=== PATIENT | male | born 1985 | race Caucasian/White ===

== ENCOUNTER 2020-08-13 08:30 | Outpatient (CLI) | payer BC, SELFPAY ==
[2020-08-13 09:07] LABS: Alanine Aminotransferase 35 U/L (4-50); Albumin Level 4.5 g/dL (3.5-5.1); Alkaline Phosphatase 73 U/L (38-126); Anion Gap 5 mmol/L (8-16); Aspartate Amino Transferase 30 U/L (17-59); Bilirubin,Total 0.3 mg/dL (0.2-1.3); Blood Urea Nitrogen 20 mg/dL (9-20); Calcium 9.5 mg/dL (8.4-10.2); Carbon Dioxide 26 mmol/L (22-30); Chloride 107 mmol/L (98-107); Cholesterol 168 mg/dL (0-200); Estimated Glomerular Filt Rate > 60; Glucose 126 mg/dL (75-110); HDL Direct 48 mg/dL; Potassium 4.9 mmol/L (3.4-5.0); Sodium 138 mmol/L (137-145); Triglycerides 169 mg/dL (<150)
[2020-08-13 09:18] LABS: LDL Cholesterol Direct 99 mg/dL
[2020-08-13 09:20] LABS: Creatinine Urine 94.2 mg/dL
[2020-08-13 09:25] LABS: Microalbumin Urine Random < 6.0 mg/L (0-16.7)
[2020-08-13 09:26] LABS: MALB Creatinine Ratio < 6.4 mg/g (0-30)
[2020-08-13 10:00] LABS: Hemoglobin A1C 5.6 % (<5.7)
== END 2020-08-13 08:31 | disposition home or self-care (01) ==
PROVIDERS: PCP Emergency Medicine; Visit Provider Emergency Medicine
DX: E78.5 Hyperlipidemia, unspecified (principal); E11.9 Type 2 diabetes mellitus without complications
CPT/HCPCS: 36415; 80053; 80061; 82043; 83036

== ENCOUNTER 2021-08-20 10:59 | Outpatient (CLI) | payer BC, SELFPAY ==
[2021-08-20 12:00] LABS: Alanine Aminotransferase 40 U/L (4-50); Albumin Level 4.9 g/dL (3.5-5.1); Alkaline Phosphatase 85 U/L (38-126); Anion Gap 8 mmol/L (8-16); Aspartate Amino Transferase 31 U/L (17-59); Bilirubin,Total 0.8 mg/dL (0.2-1.3); Blood Urea Nitrogen 20 mg/dL (9-20); Calcium 9.7 mg/dL (8.4-10.2); Carbon Dioxide 25 mmol/L (22-30); Chloride 107 mmol/L (98-107); Cholesterol 190 mg/dL (0-200); Estimated Glomerular Filt Rate > 60; Glucose 104 mg/dL (65-110); HDL Direct 47 mg/dL; Potassium 4.7 mmol/L (3.4-5.0); Sodium 140 mmol/L (137-145); Triglycerides 107 mg/dL (<150)
[2021-08-20 12:01] LABS: Creatinine Urine 173.5 mg/dL; Hemoglobin A1C 6.8 % (<5.7)
[2021-08-20 12:11] LABS: LDL Cholesterol Direct 103 mg/dL
[2021-08-20 12:21] LABS: MALB Creatinine Ratio < 3.5 mg/g (0-30); Microalbumin Urine Random < 6.0 mg/L (0-16.7)
== END 2021-08-20 11:00 | disposition home or self-care (01) ==
PROVIDERS: PCP Emergency Medicine; Visit Provider Emergency Medicine
DX: I10 Essential (primary) hypertension (principal); E11.9 Type 2 diabetes mellitus without complications; E78.5 Hyperlipidemia, unspecified
CPT/HCPCS: 36415; 80053; 80061; 82043; 83036

== ENCOUNTER 2021-11-19 09:59 | Outpatient (CLI) | payer BC, SELFPAY ==
[2021-11-19 10:30] LABS: Alanine Aminotransferase 35 U/L (4-50); Albumin Level 4.3 g/dL (3.5-5.1); Alkaline Phosphatase 96 U/L (38-126); Anion Gap 7 mmol/L (8-16); Aspartate Amino Transferase 33 U/L (17-59); Bilirubin,Total 0.7 mg/dL (0.2-1.3); Blood Urea Nitrogen 15 mg/dL (9-20); Calcium 9.6 mg/dL (8.4-10.2); Carbon Dioxide 26 mmol/L (22-30); Chloride 105 mmol/L (98-107); Estimated Glomerular Filt Rate > 60; Glucose 126 mg/dL (65-110); Potassium 5.1 mmol/L (3.4-5.0); Sodium 138 mmol/L (137-145)
[2021-11-19 11:12] LABS: Hemoglobin A1C 6.6 % (<5.7)
[2021-11-19 11:29] LABS: Creatinine Urine 170.3 mg/dL
[2021-11-19 11:55] LABS: MALB Creatinine Ratio < 3.5 mg/g (0-30); Microalbumin Urine Random < 6.0 mg/L (0-16.7)
== END 2021-11-19 10:00 | disposition home or self-care (01) ==
PROVIDERS: PCP Emergency Medicine; Visit Provider Emergency Medicine
DX: E78.5 Hyperlipidemia, unspecified (principal); I10 Essential (primary) hypertension; E11.9 Type 2 diabetes mellitus without complications
CPT/HCPCS: 36415; 80053; 82043; 83036

== ENCOUNTER 2022-02-18 07:48 | Outpatient (CLI) | payer BC, SELFPAY ==
[2022-02-18 08:47] LABS: Alanine Aminotransferase 41 U/L (4-50); Albumin Level 4.6 g/dL (3.5-5.1); Alkaline Phosphatase 81 U/L (38-126); Anion Gap 6 mmol/L (8-16); Aspartate Amino Transferase 31 U/L (17-59); Bilirubin,Total 0.5 mg/dL (0.2-1.3); Blood Urea Nitrogen 18 mg/dL (9-20); Calcium 9.3 mg/dL (8.4-10.2); Carbon Dioxide 27 mmol/L (22-30); Chloride 105 mmol/L (98-107); Cholesterol 175 mg/dL (0-200); Estimated Glomerular Filt Rate > 60; Glucose 135 mg/dL (65-110); HDL Direct 43 mg/dL; Potassium 4.7 mmol/L (3.4-5.0); Sodium 138 mmol/L (137-145); Triglycerides 74 mg/dL (<150)
[2022-02-18 08:58] LABS: LDL Cholesterol Direct 96 mg/dL
== END 2022-02-18 07:49 | disposition home or self-care (01) ==
PROVIDERS: PCP Emergency Medicine; Visit Provider Emergency Medicine
DX: E11.9 Type 2 diabetes mellitus without complications (principal); I10 Essential (primary) hypertension; E78.5 Hyperlipidemia, unspecified
CPT/HCPCS: 36415; 80053; 80061; 83036

== ENCOUNTER 2022-07-15 08:37 | Outpatient (CLI) | payer BC, SELFPAY ==
[2022-07-15 09:08] LABS: Alanine Aminotransferase 42 U/L (6-50); Albumin Level 4.4 g/dL (3.5-5.1); Alkaline Phosphatase 82 U/L (38-126); Anion Gap 7 mmol/L (8-16); Aspartate Amino Transferase 29 U/L (17-59); Bilirubin,Total 0.5 mg/dL (0.2-1.3); Blood Urea Nitrogen 21 mg/dL (9-20); Calcium 9.4 mg/dL (8.4-10.2); Carbon Dioxide 25 mmol/L (22-30); Chloride 107 mmol/L (98-107); Cholesterol 148 mg/dL (0-200); Estimated Glomerular Filt Rate > 60; Glucose 152 mg/dL (65-110); HDL Direct 37 mg/dL; Potassium 4.9 mmol/L (3.4-5.0); Sodium 139 mmol/L (137-145); Triglycerides 79 mg/dL (<150)
[2022-07-15 09:12] LABS: Hemoglobin A1C 6.2 % (<5.7)
[2022-07-15 09:18] LABS: LDL Cholesterol Direct 87 mg/dL
== END 2022-07-15 08:38 | disposition home or self-care (01) ==
LOC: ANHLAB 08:39
PROVIDERS: PCP Emergency Medicine; Visit Provider Emergency Medicine
DX: E78.5 Hyperlipidemia, unspecified (principal); E11.9 Type 2 diabetes mellitus without complications; I10 Essential (primary) hypertension
CPT/HCPCS: 36415; 80053; 80061; 83036

== ENCOUNTER 2022-10-13 09:21 | Outpatient (CLI) | payer BC, SELFPAY ==
[2022-10-13 10:04] LABS: Alanine Aminotransferase 47 U/L (6-50); Albumin Level 4.6 g/dL (3.5-5.1); Alkaline Phosphatase 76 U/L (38-126); Anion Gap 6 mmol/L (8-16); Aspartate Amino Transferase 31 U/L (17-59); Bilirubin,Total 0.7 mg/dL (0.2-1.3); Blood Urea Nitrogen 17 mg/dL (9-20); Calcium 9.1 mg/dL (8.4-10.2); Carbon Dioxide 25 mmol/L (22-30); Chloride 105 mmol/L (98-107); Cholesterol 188 mg/dL (0-200); Estimated Glomerular Filt Rate > 60; Glucose 135 mg/dL (65-110); HDL Direct 46 mg/dL; Potassium 4.8 mmol/L (3.4-5.0); Sodium 136 mmol/L (137-145); Triglycerides 80 mg/dL (<150)
[2022-10-13 10:15] LABS: LDL Cholesterol Direct 103 mg/dL
[2022-10-13 10:16] LABS: Hemoglobin A1C 5.9 % (<5.7)
[2022-10-13 10:35] LABS: Microalbumin Urine Random 6.6 mg/L (0-16.7)
[2022-10-13 10:36] LABS: MALB Creatinine Ratio 4.5 mg/g (0-30)
== END 2022-10-13 09:22 | disposition home or self-care (01) ==
LOC: ANHLAB 09:22
PROVIDERS: PCP Emergency Medicine; Visit Provider Emergency Medicine
DX: E11.9 Type 2 diabetes mellitus without complications (principal)
CPT/HCPCS: 36415; 80053; 80061; 82043; 83036

== ENCOUNTER 2023-01-13 09:12 | Outpatient (CLI) | payer BC, SELFPAY ==
[2023-01-13 09:53] LABS: Alanine Aminotransferase 44 U/L (6-50); Albumin Level 4.7 g/dL (3.5-5.1); Alkaline Phosphatase 85 U/L (38-126); Anion Gap 6 mmol/L (8-16); Aspartate Amino Transferase 32 U/L (17-59); Bilirubin,Total 0.7 mg/dL (0.2-1.3); Blood Urea Nitrogen 14 mg/dL (9-20); Calcium 9.3 mg/dL (8.4-10.2); Carbon Dioxide 25 mmol/L (22-30); Chloride 106 mmol/L (98-107); Cholesterol 156 mg/dL (0-200); Estimated Glomerular Filt Rate > 60; Glucose 121 mg/dL (65-110); HDL Direct 54 mg/dL; Potassium 5.1 mmol/L (3.4-5.0); Sodium 137 mmol/L (137-145); Triglycerides 124 mg/dL (<150)
[2023-01-13 10:04] LABS: LDL Cholesterol Direct 73 mg/dL
[2023-01-13 10:18] LABS: Creatinine Urine 113.7 mg/dL
[2023-01-13 10:20] LABS: MALB Creatinine Ratio 11.1 mg/g (0-30); Microalbumin Urine Random 12.6 mg/L (0-16.7)
[2023-01-13 11:17] LABS: Hemoglobin A1C 5.7 % (<5.7)
== END 2023-01-13 09:13 | disposition home or self-care (01) ==
LOC: ANHLAB 09:13
PROVIDERS: PCP Emergency Medicine; Visit Provider Emergency Medicine
DX: E11.9 Type 2 diabetes mellitus without complications (principal)
CPT/HCPCS: 36415; 80053; 80061; 82043; 83036

== ENCOUNTER 2023-04-20 07:28 | Outpatient (CLI) | payer BC, SELFPAY ==
[2023-04-20 08:28] LABS: Alanine Aminotransferase 49 U/L (6-50); Albumin Level 4.5 g/dL (3.5-5.1); Alkaline Phosphatase 70 U/L (38-126); Anion Gap 4 mmol/L (8-16); Aspartate Amino Transferase 35 U/L (17-59); Bilirubin,Total 0.5 mg/dL (0.2-1.3); Blood Urea Nitrogen 18 mg/dL (9-20); Calcium 8.9 mg/dL (8.4-10.2); Carbon Dioxide 29 mmol/L (22-30); Chloride 108 mmol/L (98-107); Cholesterol 170 mg/dL (0-200); Estimated Glomerular Filt Rate > 60; Glucose 101 mg/dL (65-110); HDL Direct 41 mg/dL; Potassium 4.5 mmol/L (3.4-5.0); Sodium 141 mmol/L (137-145); Triglycerides 107 mg/dL (<150)
[2023-04-20 08:39] LABS: LDL Cholesterol Direct 107 mg/dL
[2023-04-20 09:06] LABS: Hemoglobin A1C 6.1 % (<5.7)
[2023-04-20 11:31] LABS: Creatinine Urine 129.1 mg/dL
[2023-04-20 12:17] LABS: Microalbumin Urine Random < 6.0 mg/L (0-16.7)
[2023-04-20 12:18] LABS: MALB Creatinine Ratio < 4.6 mg/g (0-30)
== END 2023-04-20 07:29 | disposition home or self-care (01) ==
LOC: ANHLAB 07:30
PROVIDERS: PCP Emergency Medicine; Visit Provider Emergency Medicine
DX: E78.5 Hyperlipidemia, unspecified (principal); E11.9 Type 2 diabetes mellitus without complications
CPT/HCPCS: 36415; 80053; 80061; 82043; 83036

== ENCOUNTER 2023-08-11 08:29 | Outpatient (CLI) | payer BC, SELFPAY ==
[2023-08-11 08:54] LABS: Alanine Aminotransferase 42 U/L (6-50); Albumin Level 4.5 g/dL (3.5-5.1); Alkaline Phosphatase 78 U/L (38-126); Anion Gap 7 mmol/L (8-16); Aspartate Amino Transferase 30 U/L (17-59); Bilirubin,Total 0.5 mg/dL (0.2-1.3); Blood Urea Nitrogen 21 mg/dL (9-20); Carbon Dioxide 22 mmol/L (22-30); Chloride 110 mmol/L (98-107); Cholesterol 164 mg/dL (0-200); Estimated Glomerular Filt Rate > 60; Glucose 110 mg/dL (65-110); HDL Direct 49 mg/dL; Potassium 4.6 mmol/L (3.4-5.0); Sodium 139 mmol/L (137-145); Triglycerides 82 mg/dL (<150)
[2023-08-11 09:01] LABS: Hemoglobin A1C 6.1 % (<5.7)
[2023-08-11 09:06] LABS: LDL Cholesterol Direct 90 mg/dL
[2023-08-11 09:14] LABS: Creatinine Urine 117.4 mg/dL
[2023-08-11 09:28] LABS: MALB Creatinine Ratio < 5.1 mg/g (0-30); Microalbumin Urine Random < 6.0 mg/L (0-16.7)
[2023-08-15 15:46] LABS: Vitamin D 1,25 (OH)2 Total 44 pg/mL (18-72); Vitamin D2 1,25 (OH)2 <8 pg/mL; Vitamin D3 1,25 (OH)2 44 pg/mL
== END 2023-08-11 08:30 | disposition home or self-care (01) ==
LOC: ANHLAB 08:30
PROVIDERS: PCP Emergency Medicine; Visit Provider Emergency Medicine
DX: E11.9 Type 2 diabetes mellitus without complications (principal); E78.5 Hyperlipidemia, unspecified; E55.9 Vitamin D deficiency, unspecified
CPT/HCPCS: 36415; 80053; 80061; 82043; 82652; 83036

== ENCOUNTER 2023-11-16 07:35 | Outpatient (CLI) | payer BC, SELFPAY ==
[2023-11-16 08:11] LABS: Alanine Aminotransferase 60 U/L (6-50); Albumin Level 4.6 g/dL (3.5-5.1); Alkaline Phosphatase 94 U/L (38-126); Anion Gap 9 mmol/L (8-16); Aspartate Amino Transferase 35 U/L (17-59); Bilirubin,Total 0.8 mg/dL (0.2-1.3); Blood Urea Nitrogen 17 mg/dL (9-20); Calcium 9.5 mg/dL (8.4-10.2); Carbon Dioxide 26 mmol/L (22-30); Chloride 104 mmol/L (98-107); Cholesterol 184 mg/dL (0-200); Estimated Glomerular Filt Rate > 60; Glucose 135 mg/dL (65-110); HDL Direct 51 mg/dL; Potassium 4.7 mmol/L (3.4-5.0); Sodium 139 mmol/L (137-145); Triglycerides 95 mg/dL (<150)
[2023-11-16 08:18] LABS: LDL Cholesterol Direct 107 mg/dL
== END 2023-11-16 07:36 | disposition home or self-care (01) ==
LOC: ANHLAB 07:37
PROVIDERS: PCP Emergency Medicine; Visit Provider Emergency Medicine
DX: E55.9 Vitamin D deficiency, unspecified (principal); E78.5 Hyperlipidemia, unspecified; I10 Essential (primary) hypertension
CPT/HCPCS: 36415; 80053; 80061; 82306; 83036

== ENCOUNTER 2024-02-15 08:24 | Outpatient (CLI) | payer BC, SELFPAY ==
[2024-02-15 09:05] LABS: Alanine Aminotransferase 44 U/L (6-50); Albumin Level 4.4 g/dL (3.5-5.1); Alkaline Phosphatase 81 U/L (38-126); Anion Gap 5 mmol/L (4-12); Aspartate Amino Transferase 32 U/L (17-59); Bilirubin,Total 0.5 mg/dL (0.2-1.3); Blood Urea Nitrogen 19 mg/dL (9-20); Calcium 9.4 mg/dL (8.4-10.2); Carbon Dioxide 26 mmol/L (22-30); Chloride 105 mmol/L (98-107); Cholesterol 153 mg/dL (0-200); Estimated Glomerular Filt Rate > 60; Glucose 151 mg/dL (65-110); HDL Direct 46 mg/dL; Potassium 4.5 mmol/L (3.4-5.0); Sodium 136 mmol/L (137-145); Triglycerides 104 mg/dL (<150)
[2024-02-15 09:16] LABS: LDL Cholesterol Direct 96 mg/dL
[2024-02-15 09:48] LABS: Vitamin D 25 Hydroxy 31.9 ng/mL
[2024-02-15 10:47] LABS: MALB Creatinine Ratio < 12.5 mg/g (0-30); Microalbumin Urine Random < 6.0 mg/L (0-16.7)
[2024-02-15 13:07] LABS: Hemoglobin A1C 6.6 % (<5.7)
== END 2024-02-15 08:25 | disposition home or self-care (01) ==
LOC: ANHLAB 08:25
PROVIDERS: PCP Emergency Medicine; Visit Provider Emergency Medicine
DX: E78.5 Hyperlipidemia, unspecified (principal); E11.9 Type 2 diabetes mellitus without complications; E55.9 Vitamin D deficiency, unspecified
CPT/HCPCS: 36415; 80053; 80061; 82043; 82306; 83036

== ENCOUNTER 2024-05-17 08:27 | Outpatient (CLI) | payer BC, SELFPAY ==
[2024-05-17 09:03] LABS: Alanine Aminotransferase 39 U/L (6-50); Albumin Level 4.4 g/dL (3.5-5.1); Alkaline Phosphatase 89 U/L (38-126); Anion Gap 8 mmol/L (4-12); Aspartate Amino Transferase 43 U/L (17-59); Bilirubin,Total 0.6 mg/dL (0.2-1.3); Blood Urea Nitrogen 26 mg/dL (9-20); Calcium 10.5 mg/dL (8.4-10.2); Carbon Dioxide 29 mmol/L (22-30); Chloride 100 mmol/L (98-107); Cholesterol 143 mg/dL (0-200); Estimated Glomerular Filt Rate > 60; Glucose 117 mg/dL (65-110); HDL Direct 42 mg/dL; Potassium 3.9 mmol/L (3.4-5.0); Sodium 137 mmol/L (137-145); Triglycerides 129 mg/dL (<150)
[2024-05-17 09:14] LABS: LDL Cholesterol Direct 82 mg/dL
[2024-05-17 09:42] LABS: Creatinine Urine 48.2 mg/dL
[2024-05-17 09:56] LABS: Microalbumin Urine Random < 6.0 mg/L (0-16.7)
[2024-05-17 09:57] LABS: MALB Creatinine Ratio < 12.4 mg/g (0-30)
[2024-05-17 10:05] LABS: Hemoglobin A1C 5.8 % (<5.7)
[2024-05-17 10:17] LABS: Vitamin D 25 Hydroxy 34.9 ng/mL
== END 2024-05-17 08:28 | disposition home or self-care (01) ==
PROVIDERS: PCP Emergency Medicine; Visit Provider Emergency Medicine
DX: E78.5 Hyperlipidemia, unspecified (principal); E55.9 Vitamin D deficiency, unspecified; E11.9 Type 2 diabetes mellitus without complications
CPT/HCPCS: 36415; 80053; 80061; 82043; 82306; 83036

== ENCOUNTER 2024-05-20 12:07 | Emergency (ER) | payer BC, SELFPAY ==
[2024-05-20] VITALS (8 sets, daily range): BP systolic 126–151; BP diastolic 70–96; PULSE 77–94; RESP 15–20; TEMP 36.7; O2SAT 93–97
--- NOTE | ~2024-05-20 | CT_ITS ---
CT diagnostic chest w con Ordering provider: Mao Anderson MD History: 38 years Male with . Large left chest wall abscess . Comparison: None. Technique: CT chest with IV contrast. Radiation reduction technique utilized. DLP is 835.9 mGy-cm. 75 mL of Omnipaque 350 was given IV. Findings: VISUALIZED THORACIC INLET: Normal. MEDIASTINUM: Aorta/coronary arteries: The thoracic aorta is normal. Heart/other: The heart is not enlarged. Lymph nodes: Bilateral hilar, subcarinal and paratracheal lymphadenopathy is seen. Lymph nodes are al so seen in the prevascular area.. The right hilar lymph nodes measure 3.3 x 1.4 cm. The subcarinal ly mphadenopathy measures 4.2 x 2.1 cm. The left hilar lymph node measures 2.8 x 2.1 cm. LUNGS: No pulmonary nodules or masses. No infiltrates or effusions. No pneumothorax. VISUALIZED UPPER ABDOMEN: the visualized upper abdomen is normal. MUSCULOSKELETAL: Soft tissues: A large left chest wall mass with multiloculated areas which may be a mass with necroti c areas but an inflammatory mass with abscess is is not excluded. The mass measures 12.5 x 11.7 x 1 2 .3 cm. Fat stranding also seen around the mass anteriorly inferiorly and posteriorly. Bones: Age appropriate degenerative changes of the spine. IMPRESSION: Mass in the left chest wall which may be inflammatory with multiple abscesses or a mass with necrotic tissues. Further evaluation and clinical correlation advised. Mediastinal and bilateral hilar lymphadenopathy. Reviewed, dictated and finalized at location A. IMPRESSION: Mass in the left chest wall which may be inflammatory with multiple abscesses o r a mass with necrotic tissues. Further evaluation and clinical correlation adv ised. Mediastinal and bilateral hilar lymphadenopathy.
--- NOTE | 2024-05-20 13:26 | PC.NURSE ---
Pt denies any pain or itching to area. States he first noticed the swelling and discoloration 3 months ago and PCP told him to keep an eye on it. Pt denies any antibiotic ointment or other tx. Reports a tingling sensation to L fingers.
[2024-05-20 13:56] LABS: Basophils Percent Auto 0.5 % (0.2-1.2); Eosinophils Absolute Auto 0.6 K/mm3 (0-0.3); Eosinophils Percent Auto 8.5 % (0-4.4); Hematocrit 39.7 % (42.0-52.0); Hemoglobin 13.5 g/dL (14.0-18.0); Immature Granulocyte Absolute 0.02 K/mm3 (0.00-0.031); Immature Granulocyte Percent A 0.3 % (0-0.5); Mean Corpuscular Hemoglobin 32.1 pg (26-34); Mean Corpuscular Volume 94.5 fl (80-100); Mean Platelet Volume 8.9 fl (7.4-10.4); Monocytes Absolute Auto 0.6 K/mm3 (0.1-0.6); Neutrophils Absolute Auto 5.6 K/mm3 (1.3-6.7); Neutrophils Percent Auto 74.7 % (45.5-73.1); Platelet Count Result 218 k/mm3 (150-375); Red Cell Distribution Width 13.2 % (11.5-14.5); White Blood Count 7.5 K/mm3 (4.5-10.0)
[2024-05-20 14:02] LABS: Estimated CRCL calculation 94 ml/min; Estimated Glomerular Filt Rate > 60
[2024-05-20 14:08] LABS: Lactic Acid Reflex 1.8 mmol/L (0.7-2.0)
[2024-05-20 14:09] LABS: Alanine Aminotransferase 35 U/L (6-50); Albumin Level 3.8 g/dL (3.5-5.1); Alkaline Phosphatase 72 U/L (38-126); Anion Gap 6 mmol/L (4-12); Aspartate Amino Transferase 37 U/L (17-59); Bilirubin,Total 0.3 mg/dL (0.2-1.3); Blood Urea Nitrogen 23 mg/dL (9-20); Calcium 10.4 mg/dL (8.4-10.2); Carbon Dioxide 28 mmol/L (22-30); Chloride 105 mmol/L (98-107); Estimated CRCL calculation 104 ml/min; Estimated Glomerular Filt Rate > 60; Glucose 204 mg/dL (65-110); Potassium 3.9 mmol/L (3.4-5.0); Sodium 139 mmol/L (137-145)
--- NOTE | 2024-05-20 14:15 | ED.GENADULT ---
HPI - General Adult General Chief complaint: Unspecified <Mao Anderson MD - Last Filed: 05/20/24 18:46> Stated complaint: swollen axilla <Mao Anderson MD - Last Filed: 05/20/24 18:46> Time Seen by Provider: 05/20/24 12:31 <Mao Anderson MD - Last Filed: 05/20/24 18:46> Source: patient <Mao Anderson MD - Last Filed: 05/20/24 18:46> Mode of arrival: ambulatory <Mao Anderson MD - Last Filed: 05/20/24 18:46> Limitations: no limitations <Mao Anderson MD - Last Filed: 05/20/24 18:46> History of Present Illness HPI narrative: This is a 38M with history of diabetes, who presents emergency department complaining of a rapidly growing mass on the left side of his chest. Patient states 3 months ago, he noticed a small mass in the same area that is increased size of the past week. This is associated with left arm swelling and redness of the skin. He denies significant pain, fevers or chills. He has no other complaints at this time. <Mao Anderson MD - Last Filed: 05/20/24 18:46> Related Data Allergies/adverse reactions: Allergies Allergy/AdvReac Type Severity Reaction Status Date / Time No Known Allergies Allergy Verified 05/20/24 12:08 <Mao Anderson MD - Last Filed: 05/20/24 18:46> Review of Systems Review of Systems: All systems reviewed & are unremarkable except as noted in HPI and below <Mao Anderson MD - Last Filed: 05/20/24 18:46> PMFSH Past Medical History Medical History: Medical History Abscess Acute diffuse otitis externa of right ear Cellulitis of left upper extremity Cellulitis of right lower extremity Cervical spine pain Diabetes mellitus Fatigue HLD (hyperlipidemia) HTN (hypertension) Hyperglycemia Moderate episode of recurrent major depressive disorder Tobacco use Type 2 diabetes mellitus Vitamin D deficiency <Mao Anderson MD - Last Filed: 05/20/24 18:46> Social History Social History: Social History Smoking status: Heavy tobacco smoker Second hand tobacco smoke exposure: Yes Alcohol intake: current Substance use: never Substance use type: does not use Current Housing: Decline to Answer Concerned About Future Housing: Decline to Answer Difficulty Paying Gas/Electric Bills: Decline to Answer Difficulty Paying for Meds: Decline to Answer Currently Unemployed: Decline to Answer Education: Decline to Answer Difficulty w/ Childcare or Family Care: Decline to Answer Gender identity (if verbalized by the patient): Male Spiritual care concerns: No Agree to blood products: Yes <Mao Anderson MD - Last Filed: 05/20/24 18:46> Exam Narrative: GENERAL: Well-developed, well-nourished, and in no acute distress. HEAD: Normocephalic, atraumatic. EYES: PERRLA and EOMI. NECK: Supple. No adenopathy or masses. No carotid bruits or JVD CHEST: Clear to auscultation. No respiratory distress. No wheezes rales or rhonchi. There is a large (approximately baseball sized) mass noted over the left chest wall at the lateral border of the pectoral muscle. The overlying skin is erythematous with a sharp demarcation. HEART: Regular rate and rhythm. No murmur heard. Normal peripheral pulses. ABDOMEN: Soft, nontender, nondistended, normal active bowel sounds. EXTREMITIES: The left arm appears swollen with trace edema. There is erythema noted at the proximal aspect with sharp demarcation. Normal range of motion. No noted edema in the other limbs. SKIN: Erythema as noted above. Skin otherwise warm, dry, no rash. NEURO: Alert and oriented x3. No focal deficit. Moving all 4 limbs spontaneously PSYCH: Normal mood and affect. <Mao Anderson MD - Last Filed: 05/20/24 18:46> Course Course Emergency Course: 15:05 -CBC demonstrates mild anemia hemog
[2024-05-20] MEDS: CEFEPIME 1 GM/NS 50 ML 1 GM/50 ML BAG IVPB (14:43)
[2024-05-20] MEDS: metroNIDAZOLE 500 MG/ISO 100ML 500 MG/100 ML BAG 100 MG IVPB (15:10)
[2024-05-20] MEDS: VANCOMYCIN 1,250 MG/NS 250 ML 1,250 MG/250 ML BAG 166.67 MG IVPB (16:17)
--- NOTE | 2024-05-20 17:23 | PC.NURSE ---
Edda with [facility] transfer center called for triage information. States he is accepted at [facility] and awaiting a bed, reports it will be approx 1 week.
[2024-05-20] MEDS: VANCOMYCIN 1,000 MG/NS 250 ML 1,000 MG/250 ML BAG 250 MG IVPB (18:33)
[2024-05-20] MEDS: NICOTINE (*PBKC) 21 MG PATCH 1 PATCH TRANSDERM (19:43)
--- NOTE | 2024-05-20 22:16 | PC.NURSE ---
Pt accepted at [facility], room 317. Report given to Mihir Chacon at [phone].
== END 2024-05-20 23:53 | disposition short-term general hospital (02) ==
PROVIDERS: Preventive Medicine Aerospace Medicine; Emergency Provider Emergency Medicine; PCP Emergency Medicine
DX: R22.2 Localized swelling, mass and lump, trunk (principal); L03.313 Cellulitis of chest wall; I10 Essential (primary) hypertension; E11.9 Type 2 diabetes mellitus without complications; E78.5 Hyperlipidemia, unspecified; E55.9 Vitamin D deficiency, unspecified; F17.200 Nicotine dependence, unspecified, uncomplicated; Z79.4 Long term (current) use of insulin
CPT/HCPCS: 36415; 71260; 80053; 83605; 85025; 87040; 96365; 96366; 96367; 99285; A9270; J0692; J1836; J3370; Q9967

== ENCOUNTER 2025-01-26 08:03 | Outpatient (CLI) | payer BC, SELFPAY ==
--- OUTSIDE RECORDS SUMMARY | 2025-01-26 08:16 | XMS_ITS ---
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 05/30/2024 Chest wall mass 05/20/2024 Allergic rhinitis 07/20/2006 Migraine headache 07/20/2006 Tobacco use disorder 07/20/2006 Current Treatment and Therapy Plans CCSCI: R CHOP (STD 21 DAY) - NON-HODGKIN LYMPHOMA* Plan Start Date:06/11/2024 Plan Provider:Marc Henley MD Linked Problems Diffuse large B-cell lymphom a of intrathoracic lymph nodes (HCC) Treatment Medications cyclophosphamide (CYTOXAN) c hemo infusionDOXOrubicin (ADRIAMYCIN)riTUXimab-ARRX (Riabni) infusionvinCRIStine (ONCOVIN) chemo infusion Past Treatment and Therapy Plans ONCOLOGY SUPPORTIVE CARE Plan Name Start Date Discontinue Date Treatment Medications Discontinue Reason Plan Provider Cycles SUPPORT - HYDRATION WITH ADDITIVES - CCSCI 4 01/22/2025 No medications scheduled. Automatically Discontinued - Inactive Plan Marc Henley MD 1 of 1 cycle started Lifetime Dose Tracking * Chemical Lifetime Dose Automatic Entry Manual Entr y Doxorubicin 357.633 mg/m2 (728 mg) 357.633 mg/m2 (728 mg) 0 mg/m2 (0 mg) Cyclophosphamide 4,596.028 mg/m2 (9,360 mg) 4,596.028 mg/m2 (9,360 mg) 0 mg/m2 (0 mg)
--- OUTSIDE RECORDS SUMMARY | 2025-01-26 08:16 | XMS_ITS | Encounter Summary ---
Author Organization [facility] Address [address] [place] [id number] Care Team Providers Care Purchasing Internship Name Role Phone Trevor Womack MD Primary Care Provider [phone] Encounter Details Date Type Department Care Team (Late st Contact Info) Description 12/05/2007 Orders Only [facility] Internal Medicine [address] [address] Trevor Womack MD [address] [place] [phone] Social History Tobacco Use Types Packs/Day Years Used Date Smoking Tobacco: Never Assessed Sex and Gender Information Value Date Recorded Sex Assigned at Not on file Legal 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 PROBLEMS: Body aches. Has been hot & cold. CONGESTION: Patient complains of sinus congestion. The symptoms began approximately 2 days ago. Therapies tried include cold medicine. Clear sinus congestion COUGH:Patient complains of cough. The symptoms began approximately 2 days ago. Makes him cough & he dry heaves. non-productive RUNNY NOSE: Patient complains of runny nose. The runny nose symptoms began approximately 2 days ago. SORE THROAT: Patient complains of sore throat. The sore throat began approximately 2 days ago. SECTION 1: REQUESTED ACTION jann 12/05/07 at 10:29 am: APPOINTMENT REQUEST: Patient wants an appointment today, you are booked, need OK to book with another provider. DOCTOR`S RESPONSE: calvinmindi 12/05/07 at 10:40 am see me at 11;45 FINAL ACTION: jann 12/05/07 at 10:43 am Spoke with patient 12/05/07 at 10:43 am. Booked appointment: 11:45 Electronically Signed by: Deborah Bellamy on November * Trevor Womack MD - 03/25/2008 8:10 PM CDT WEIGHT: 178lbs BLOOD PRESSURE: 122/86 Right Arm Sitting NURSE NAME: Markus Escalera N TOBACCO USE Patient is a current tobacco user. CHIEF COMPLAINT Patient complains of cough, post nasal drip.started 3 days ago, felt warm then chills, some dry heaves from coughing, cough is dry though HISTORY: HISTORY: 305.1-TOBACCO ABUSE The patient continues to smoke regularly despite the awareness that this is harmful. 466.0-BRONCHITIS ACUTE The acute bronchitis has worsened. The patient continues to smoke regularly. PHYSICAL EXAMINATION: CONSTITUTIONAL: GENERAL APPEARANCE: Healthy appearing patient in no distress. EARS, NOSE, MOUTH AND THROAT: ORAL: Inspection of gums, lips, palate, and teeth normal. No scars, lesions, or masses. Oral mucosaunremarkable with non-inflamed posterior pharynx. NECK/THYROID: Trachea midline. No thyroid enlargement, tenderness, or mass. No supraclavicular or cervical adenopathy. RESPIRATORY: Clear to auscultation and percussion. Normal respiratory effort. CARDIOVASCULAR: CARDIAC: Regular rhythm. No murmurs, rubs, or gallops. ARTERIAL: No aortic bruits. EDEMA/VARICOSITIES OF EXTREMITIES: No edema or varicosities. GASTROINTESTINAL: ABDOMEN: Soft, non-tender, without masses. Bowel sounds active. LIVER/SPLEEN/KIDNEY: No hepatosplenomegaly, tenderness or nodularity. Kidneys not palpable. ASSESSMENT/PLAN: 305.1-TOBACCO ABUSE ASSESSMENT: The patient continues to smoke and was strongly advised to discontinue tobacco productscompletely. 692.9-ECZEMA ASSESSMENT: The patient's dermatitis has improved. 466.0-BRONCHITIS ACUTE ASSESSMENT: The patient's acute bronchitis has worsened. MEDICATIONS: AUGMENTIN ORAL TABLET 875-125 MG, 1 Two Times A Day, 20 Dispensed, status: NEW PRESCRIPTION, 12/05/2007. GUAIFENESIN AC ORAL LIQUID 100-10 MG/5ML FLUIDOUNCES, 10 cc every three hours while awake, 4 Dispensed, status: NEW PRESCRIPTION, 12/05/2007. RETURN VISIT : Patient instructed to call in 5 days if not improving.rest incr fluids, tyelnol Electronically Signed by: Trevor Womack MD on November documented in this encounter Plan of Treatment Not on file documented as of this encounter Visit Diagnoses Not on filedocumented in this encounter Care Teams Purchasing Internship Relationship Specialty [place] [id number] [phone] PCP - General 03/17/08 documented as of this encounter
--- OUTSIDE RECORDS SUMMARY | 2025-01-26 08:16 | XMS_ITS | Encounter Summary ---
Author Organization [facility] Address [address] [place] [address] Care Team Providers Care Marketing Support Manager Name Role Phone Trevor Mistry MD Primary Care Provider [phone] Marc Henley MD Unavailable [phone] Encounter Details Date Type Department Care Team (Late st Contact Info) Description 08/20/2024 Prep for Procedure [facility] [address] [place] [address] Brendon Sr DO [address] [facility] [address] [address] [place], [place] [id number] Social History Tobacco Use Types Packs/Day Years Used Date Smoking Tobacco: Every Day Cigarettes 2 18 Started: 2003; Last attempted to quit: 2021 Alcohol Use Standard Drinks/Week Comments Yes 12 (1 standard drink = 0.6 oz pu re alcohol) depending on day [facility] Utilities Answer Date Recorded In the past 12 months has Molecular Sensing, oil, or water Asthmatracker threatened to shut off services in your home? No 05/21/2024 Humiliation, Afraid, Rape, and Kick questionnair e Answer Date Recorded Within the last year, have y ou been afraid of your partner or ex-partner? No 05/21/2024 Within the last year, have y ou been humiliated or emotionally abused in other ways by your partner or ex-partner? No Within the last year, have y ou been kicked, hit, slapped, or otherwise physically hurt by your partner or ex-partner? No 05/21/2024 Within the last year, have y ou been raped or forced to have any kind of sexual activity by your partner or ex-partner? No 05/21/2024 Overall Financial Resource Strain (CARDIA) Answe r Date Recorded How hard is it for you to pa y for the very basics like food, housing, medical care, and heating? Not hard at all 05/21/2024 Hunger Vital Sign Answer Date Recorded Within the past 12 months, y ou worried that your food would run out before you got the money to buy more. Never true 05/21/20 24 Within the past 12 months, t he food you bought just didn't last and you didn't have money to get more. Never true 05/21/2024 PRAPARE - Transportation Answer Date Re corded In the past 12 months, has l ack of transportation kept you from medical appointments or from getting medications? No 05/12 In the past 12 months, has l ack of transportation kept you from meetings, work, or from getting things needed for daily living? No 05/21/2024 Housing Stability Vital Sign Answer David e Recorded In the last 12 months, was t here a time when you were not able to pay the mortgage or rent on time? No 05/21/2024 In the past 12 months, how m any times have you moved where you were living? 1 05/21/2024 At any time in the past 12 m [facility], were you homeless or living in a chcf (including now)? 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 Answer Date of Assessment Author Status No 05/21/2024 12:41 AM JADAT Antonio Keene RN Active * Do you have serious difficulty walking or climbing stairs? Answer Date of Assessment Author Status No 05/21/2024 12:41 AM CDT Antonio Keene RN Active * Do you have difficulty dressing or bathing? Answer Date of Assessment Author Status No 05/21/2024 12:41 AM CDT Antonio Keene RN Active * Because of a physical, mental, or emotional condition, do you have difficulty doing errands alone such as visiting a doctor's office or shopping? Answer Date of Assessment Author Status No 05/21/2024 12:41 AM CDT Antonio Keene RN Active documented as of this encounter Mental Status * Because of a physical, mental, or emotional condition, do you have serious difficulty concentrating, remembering, or making decisions? Answer Entry Date Author Status No 05/21/2024 12:41 AM JADAT Antonio Keene RN Active documented in this encounter Plan of Treatment Not on file documented as of this encounter Results * PROTIME/INR, VENOUS (08/20/2024 10:56 AM CDT) PROTIME 11.2 10.2 - 12.9 SEC 08/20/2024 11:29 AM CDT [facility] INR 1.0 08/20/2024 11:29 AM CDT [facility] Comment: Recommended INR Therapeutic Goals: 2.0-3.0 Routine Therapy 2.5-3.5 Mechanical Prosthetic Valves (High Risk) 08/20/2024 10:5 6 AM CDT us Brendon Sr DO LABORATORY Final Resu lt [facility] [address] [place] [address], * (ABNORMAL) CBC W/DIFF AUTOMATED (08/20/2024 10:56 AM CDT) WBC 5.56 4.5 - 11.0 x10'3/uL 08/20/2024 11:47 AM CDT [facility] RBC 4.59(L) 4.70 - 6.10 x10'6/uL 08/20/2024 11:47 AM CDT [facility] HGB 15.2 14.0 - 18.0 G/DL 08/20/2024 11:47 AM CDT [facility] HCT 45.3 43.0 - 54.0 % 08/20/2024 11:47 AM CDT [facility] MCV 98.7(H) 80.0 - 94.0 FL 08/20/2024 11:47 AM CDT [facility] MCH 33.1(H) 27.0 - 31.0 PG 08/20/2024 11:47 AM CDT [facility] MCHC 33.6 32.0 - 36.0 G/DL 08/20/2024 11:47 AM CDT [facility] RDW 14.3 11.5 - 14.5 % 08/20/2024 11:47 AM CDT [facility] PLT 175 130 - 400 x10'3/uL 08/20/2024 11:47 AM CDT [facility] MPV 9.4 9.3 - 12.2 FL 08/20/2024 11:47 AM CDT [facility] DIFFERENTIAL TYPE MANUAL DIFFERENTIAL 08/20/2024 11:53 AM CDT [facility] SEG NEUTROPHILS 70 % 11:53 AM CDT [facility] LYMPHOCYTES 9 % 08/20/2024 11:53 AM CDT [facility] ATYP. LYMPHS 4 % 08/20/2024 11:53 AM CDT [facility] MONOCYTES 4 % 08/20/2024 11:53 AM CDT [facility] EOSINOPHILS 5 % 08/20/2024 11:53 AM CDT [facility] BASOPHILS 1 % 08/20/2024 11:53 AM CDT [facility] BANDS 7 % 08/20/2024 11:53 AM CDT [facility] ABS. NEUTROPHILS 4.28 1.80 - 7.70 x10'3/uL 08/20/2024 11:53 AM CDT [facility] ABS. LYMPHOCYTES 0.72(L) 1.00 - 4.80 x10'3/uL 08/20/2024 11:53 AM CDT [facility] ABS. MONOCYTES 0.22(L) 0.30 - 0.82 x10'3/uL 08/20/2024 11:53 AM CDT [facility] ABS. EOSINOPHILS 0.28 0.04 - 0.54 x10'3/uL 08/20/2024 11:53 AM CDT [facility] ABS. BASOPHILS 0.06 0.01 - 0.08 x10'3/uL 08/20/2024 11:53 AM CDT [facility] RBC MORPHOLOGY SLIDE REVIEWED 2023 11:53 AM CDT [facility] TOXIC GRANULOCYTES 1+ 08/20/2024 11:53 AM CDT [facility] DOHLE BODY 1+ 08/20/2024 11:53 AM CDT [facility] PLT EST. ADEQUATE 08/20/2024 11:53 AM CDT [facility] 08/20/2024 10:5 6 AM CDT us Brendon Sr DO LABORATORY Final Resu lt [facility] [address] [place] [address], documented in this encounter Visit Diagnoses Diagnosis Lymphadenopathy- Primary Enlargement of lymph nodes Preop examination Preoperative examination, unspecified documented in this encounter Care Teams Marketing Support Manager Relationship Specialty Start Date End Date Trevor Mistry MD [address] [place] [address] PCP - General INTERNAL MEDICINE 05/21/24 Marc Henley MD [address] [place] [address] Consulting Physician HEMATOLOGY/ONCOLOGY 06/02/24 documented as of this encounter
--- OUTSIDE RECORDS SUMMARY | 2025-01-26 08:16 | XMS_ITS | Encounter Summary ---
Author Organization [facility] Address [address] [place] [address] Care Team Providers Care Key Carrier Name Role Phone Unavailable Primary Care Provider Unavailabl e Encounter Details Date Type Department Care Team (Late st Contact Info) Description 08/05/2018 Lab Requisition [facility] Care D[facility] Lab [address] [place] [phone] Melvi Mcqueen MD [address] [facility] [address] [place] [address] Social History Tobacco Use Types Packs/Day Years Used Date Smoking Tobacco: Every Day Cigarettes Smokeless Tobacco: Never Alcohol Use Standard Drinks/Week Comments Yes 0 (1 standard drink = 0.6 oz pur e alcohol) Sex and Gender Information Value Date Recorded Sex Assigned at Not on file Gender Identity Not on file Sexual Orientation Not on file documented as of this encounter Plan of Treatment Not on file documented as of this encounter Procedures Procedure Name Priority Date/Time Associated Diagnosis Comments DERMATOPATH TECHNICAL REPORT Routine 08/01/2018 12:00 AM CDT documented in this encounter Results * DERMATOPATH TECHNICAL REPORT (08/01/2018 12:00 AM CDT) Case Report Dermatopathology Report Case: [id number] Authorizing Provider: Melvi Mcqueen MD Collected: 08/01/2018 12:00 AM Pathologist: Emma Shine MD Received: 08/05/2018 06:59 AM Specimens: A) - Skin, right forearm B) - Skin, left thigh 8 2:01 PM CDT DERMATOPATHOLOGY LABORATORY Addendum 1 At the request of the diagnosing physician, the technical component for GMS, Tissue Gram and Tamie on Specimen A and a GMS on Specimen B was performed by [facility]ermatopathology [facility]. 2:01 PM [facility] DERMATOPATHOLOGY LABORATORY Addendum electronically signed by Emma Shine MD on 08/07/2018 at 2:01 PM Clinical History A-B: R/O insect bites vs deep fungal vs contact. Check margins. 2:01 PM T DERMATOPATHOLOGY LABORATORY Gross Description Specimen A: Received is one formalin filled container labeled with the patient's name and designated right forearm. The specimen consists of a punch measuring [id number]. The margin is inked green. Jar 0. Specimen B: Received is one formalin filled container labeled with the patient's name and designated left thigh. The specimen consists of a punch measuring [id number]. The margin is inked green. Jar 0. [facility] performed the technical component only. 2:01 PM T DERMATOPATHOLOGY LABORATORY Embedded Images 2:01 PM T DERMATOPATHOLOGY LABORATORY DISCLAIMER An external and internal positive and negative controls are appropriate for the histochemical, immunohistochemical and immunofluorescence stain(s) in this case (if any), except where stated explicitly. The performance characteristics of the stain(s) cited in this report were developed and its performance characteristic determined by the Dermatopathology Laboratory at [facility]. These tests need not be, and therefore are not, approved by the [place] Food and Drug Administration. The tests are used for clinical purposes. 2:01 PM [facility] DERMATOPATHOLOGY LABORATORY Pathology/Cytology TISSUE SPECIMEN FROM SKIN / Unknown 08/01/2018 08/05/2018 6:59 AM CDT Miscellaneous samples (specimen) TISSUE SPECIMEN FROM SKIN / Unknown 08/01/2018 08/05/2018 6:59 AM CDT Melvi Mcqueen MD LAB - PATHOLOGY/CYT OLOGY ORDERABLES DERMATOPATHOLOGY LABORATORY [facility] - Department of Dermatology [address] Lab [address] [phone] documented in this encounter Visit Diagnoses Not on filedocumented in this encounter
--- OUTSIDE RECORDS SUMMARY | 2025-01-26 08:16 | XMS_ITS | Clinical Summary ---
Author Organization [facility] Address [address] [place] [address] Care Team Providers Care Credit Card Interviewer Name Role Phone Trevor Womack MD Primary Care Provider [phone]- [phone] Allergies Active Allergy Reactions Criticality Noted Date Comments No Known Allergies 07/20/2006 Medications predniSONE (DELTASONE) 20 mg Oral Tab Take by mouth. 3 TAB daily for 4 days AND THEN 2 daily for 4 days AND THEN 1 daily for 1 week 27.00 0 8 Active TEMOVATE 0.05 % Topical Crea Apply sparingly CREAM to affected areas TOPICAL TWICE DAILY as needed 60.00 0 8 Active sumatriptan (IMITREX) 100 mg Oral Tab Take 1 Tab by mouth 1 time daily as needed for Migraine. 3 month supply 27 Tab 3 9 Active Active Problems Problem Noted Date Diagnosed Date Contact dermatitis and other eczema, due to unspecified cause 11/29/2007 Migraine, unspecified, witho ut mention of intractable migraine without mention of status migrainosus 07/20/2006 Allergic rhinitis 07/20/2006 Tobacco use disorder 07/20/2006 Resolved Problems Problem Noted Date Diagnosed Date Resolved Date Acute bronchitis 12/05/2007 03/17/2008 Rash and other nonspecific skin eruption 07/20/2006 03/17/2008 Social History Tobacco Use Types Packs/Day Years Used Date Smoking Tobacco: Every Day Cigarettes 2 4 Alcohol Use Standard Drinks/Week Comments Yes 0 (1 standard drink = 0.6 oz pur e alcohol) Sex and Gender Information Value Date Recorded Sex Assigned at Not on file Legal Sex Male 2:59 AM PUBLIC RELATIONS SPECIALIST Gender Identity Not on file Sexual Orientation Not on file Last Filed Vital Signs Vital Sign Reading Time Taken Comments Blood Pressure 120/70 03/17/2008 4:13 PM CDT Pulse - - Temperature - - Respiratory Rate - - Oxygen Saturation - - Inhaled Oxygen Concentration - - Weight 80.3 kg (177 lb) 03/17/2008 4:13 PM CDT Height - - Body Mass Index - - Plan of Treatment Health Maintenance Due Date Last Done Comments DTAP/TDAP/TD VACCINES (1 - Tdap) 2005 HEPATITIS B VACCINES (1 of 3 - 19+ 3-dose series) 2005 INFLUENZA VACCINE (#1) 2024 HPV VACCINES Aged Out No longer eligi ble based on patient's age to complete this topic Care Teams Credit Card Interviewer Relationship Specialty [place] [id number] [phone] PCP - General 03/17/08
--- OUTSIDE RECORDS SUMMARY | 2025-01-26 08:16 | XMS_ITS | Encounter Summary ---
Author Organization [facility] Address [address] [place] [address] Phone Care Team Providers Care Wagon Driver Salesperson Name Role Phone Provider, Unknown Primary Care Provider Unavaila Marc Brewer MD Unavailable Encounter Details Date Type Department Care Team (Late st Contact Info) Description 01/22/2025 Results Follow-Up [facility] [address] [place] [address] Dawna Dodson, CONTINGENTS SUPERVISOR, PUBLICATION DESIGNER [address], [place] [id number] Social History Tobacco Use Types Packs/Day Years Used Date Smoking Tobacco: Every Day Cigarettes Smokeless Tobacco: Never Alcohol Use Standard Drinks/Week Comments Yes 12 (1 standard drink = 0.6 oz pu re alcohol) weeekends Sex and Gender Information Value Date Recorded Sex Assigned at Not on file Legal Sex Male 9:30 AM CDT Gender Identity Not on file Sexual Orientation Not on file documented as of this encounter Functional Status * Question Answer Date of Assessment Author Little interest or pleasure in doing things Not at all 01/22/2025 9:13 AM Giovana Rodriguez RN Feeling down, depressed, or hopeless Not at all 01/22/2025 9:13 AM Giovana Rodriguez RN * Over the past 2 weeks, how often have you been bothered by any of the following problems? Question Answer Date of Assessment Author Patient Health Questionnaire -2 Score 0 01/22/2025 9:13 AM CDT Giovana Oconnor, RN documented as of this encounter Plan of Treatment Upcoming Encounters Date Type Department Care Team (Late st Contact Info) Description 04/23/2025 9:00 AM CDT Office Visit [facility] [address] [place] [phone] Marc Henley MD [address] [place] [address] [id number] documented as of this encounter Visit Diagnoses Not on filedocumented in this encounter Care Teams Wagon Driver Salesperson Relationship Specialty Start Date End Date Provider, Unknown UNKNOWN PCP - General 05/23/24 Marc Henley MD [address] [place] [phone] Consulting Physician Oncology 05/28/24 documented as of this encounter
--- OUTSIDE RECORDS SUMMARY | 2025-01-26 08:16 | XMS_ITS | Encounter Summary ---
Author Organization [facility] Address [address] [place] [address] Care Team Providers Care Real Estate Officer Name Role Phone Trevor Womack MD Primary Care Provider [phone]- [phone] Encounter Details Date Type Department Care Team (Late st Contact Info) Description 01/16/2008 Outpatient Historical [facility] Internal Medicine [address] [address] Trevor Womack [place] [id number] [place] [phone] Social History Tobacco Use Types Packs/Day Years Used Date Smoking Tobacco: Never Assessed Sex and Gender Information Value Date Recorded Sex Assigned at Not on file Legal Sex Male 2:59 AM TICKETING CLERK Gender Identity Not on file Sexual Orientation Not on file documented as of this encounter Plan of Treatment Not on file documented as of this encounter Visit Diagnoses Not on filedocumented in this encounter Care Teams Real Estate Officer Relationship Specialty Start Date End Date Trevor Womack [place] [id number] [place] [phone] PCP - General 03/17/08 documented as of this encounter
--- OUTSIDE RECORDS SUMMARY | 2025-01-26 08:16 | XMS_ITS | Clinical Summary ---
Author Organization [facility] Address [address], [facility] [address] [place] [address] Phone Care Team Providers Care Division Human Resources Manager Name Role Phone Provider, Unknown Primary Care Provider Marc Christie MD Unavailable [phone] Allergies No known active allergies Medications felice Iveygn, 100 UNIT/ML Solution Pen-injector ADMINISTER 30 UNITS UNDER THE SKIN DAILY. 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 60 Tablet 06/12/20 24 Active Additional Information Patient not taking.Reported on 01/22/2025 Insulin Lispro, 1 Unit Dial, 100 UNIT/ML Solution Pen-injector 01/19/20 25 Active predniSONE (DELTASONE) 20 MG Tablet Take 2 Tablets by mouth daily. 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) (Primary Dx) 01/22/2025 8:00 AM CDT Ancillary Procedure [facility] [address] [phone] Dawna Dodson, ANGIE, BRAKE HOLDER 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) 01/22/2025 7:45 AM CDT Lab [facility] [address] [phone] Lab, [facility] 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) 01/22/2025 Results Follow-Up [facility] [address] [phone] Dawna Dodson, ANGIE, BRAKE HOLDER 01/22/2025 Travel 01/08/2025 9:00 AM FERTILIZER APPLICATOR Office Visit [facility] [address] [phone] Dawna Dodson, ANGIE, BRAKE HOLDER 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) (Primary Dx) 01/08/2025 Travel 12/11/2024 9:15 AM FERTILIZER APPLICATOR Clinical Support [facility] [address] [address] Nurse, [facility] [place] 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) 12/11/2024 9:00 AM FERTILIZER APPLICATOR Office Visit [facility] [address] [phone] Marc Henley MD 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) (Primary Dx) 12/11/2024 Travel 12/04/2024 9:00 AM FERTILIZER APPLICATOR Clinical Support [facility] [address] [phone] Nurse, Cc [place] 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) (Primary Dx) 12/04/2024 Travel 11/27/2024 9:00 AM FERTILIZER APPLICATOR Clinical Support [facility] [address] [address] Nurse, C[facility] [place] 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) (Primary Dx) 11/27/2024 Travel 11/20/2024 9:30 AM FERTILIZER APPLICATOR Clinical Support [facility] [address] [phone] Nurse, [facility] [place] 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) (Primary Dx) 11/20/2024 Travel 11/13/2024 9:35 AM FERTILIZER APPLICATOR Clinical Support [facility] [address] [address] Nurse, C[facility] [place] 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) (Primary Dx) 11/13/2024 Travel 11/06/2024 9:00 AM FERTILIZER APPLICATOR Clinical Support [facility] [address] [address] Nurse, [facility] [place] 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) (Primary Dx) 11/06/2024 Travel 10/30/2024 9:15 AM FERTILIZER APPLICATOR Clinical Support [facility] [address] [phone] Nurse, Sis Doloreson 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6 oz pu re alcohol) weeekends Sex and Gender Information Value Date Recorded Sex Assigned at Not on file Legal Sex Male 9:30 AM CDT Gender Identity Not on file Sexual Orientation Not on file Last Filed Vital Signs Vital Sign Reading Time Taken Comments Blood Pressure 150/82 01/22/2025 9:13 AM CDT Pulse 73 01/22/2025 9:13 AM CDT Temperature 36.5 C (97.7 F) 01/22/2025 9:13 AM CDT Respiratory Rate 18 01/22/2025 9:13 AM CDT Oxygen Saturation 97% 01/22/2025 9:13 AM CDT Inhaled Oxygen Concentration - - Weight 91.1 kg (200 lb 12.8 oz) 01/22/2025 9:13 AM CDT Height 167.6 cm (5' 6 ) 01/22/2025 9:13 AM CDT Body Mass Index 32.41 01/22/2025 9:13 AM CDT Plan of Treatment Upcoming Encounters Date Type Department Care Team (Late st Contact Info) Description 04/23/2025 9:00 AM CDT Office Visit [facility] [address] [phone] Marc Henley MD [address] [place] [address] Health Maintenance Due Date Last Done Comments Hepatitis C Virus (HCV) Screening 1986 SARS-COV-2 Immunization (#1) 1991 Hepatitis B Immunization (1 of 3 - 19+ 3-dose series) 2005 Pneumococcal Immunization Co mbined (1 of 2 - PCV) 2005 Influenza Immunization (#1) 2024 Respiratory Syncytial Virus (RSV) Immunization (Adult) (1 - 1-dose 75+ series) 2061 TdaP Immunization Completed 06/15/2019 Meningococcal Immunization (ACWY) Aged Out No longer eligible based on patient's age to complete this topic Rotavirus Immunization Aged Out No lo nger eligible based on patient's age to complete this topic Procedures Procedure Name Priority Date/Time Associated Diagnosis Comments PET CT TUMOR IMAGING SKULL BASE TO MID THIGH Routine 01/22/2025 10:29 AM CDT 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) COMPLETE BLOOD COUNT (CBC) WITH DIFF Routine 01/22/2025 7:43 AM CDT 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) CMP (COMPREHENSIVE METABOLIC PANEL) Routine 01/22/2025 7:43 AM CDT 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) LACTATE DEHYDROGENASE (LD) Routine 01/22/2025 7:43 AM CDT 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) CBC WITH AUTO DIFF OH Routine 12/11/2024 9:00 AM FERTILIZER APPLICATOR 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) CMP (COMPREHENSIVE METABOLIC PANEL) Routine 12/11/2024 9:00 AM FERTILIZER APPLICATOR 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 Diffuse large B-cell lymphoma. Follow-up subsequent treatment strategy. COMPARISON: Prior CT-PET 10/17/2024 TECHNIQUE: Following the administration of 11.85 millicuries F 18 FDG, CT PET images were performed from the skull base through the mid thighs. Fused CT PET images were reviewed at the workstation. Glucose 188. A dose lowering technique was used for this procedure, which may include, but is not limited to, dose reduction technique(s), automated exposure control technique(s), use of iterative reconstruction technique(s), and ALARA (as low as reasonably achievable) or ALARA/IMAGE Gently technique(s). FINDINGS: Head neck: No mass or abnormal activity is identified within the brain parenchyma. Sinus disease is likely inflammatory. Less than 1 cm lymph nodes are seen within the neck. No hypermetabolic adenopathy is seen within the neck. Thyroid is unremarkable Cardiovascular: Thoracic aorta is intact without aneurysmal dilatation. No significant coronary artery calcification is seen heart size is probably within normal limits. Lungs: No suspicious pulmonary nodules are appreciated. There is some subtle ground-glass opacities present. Hepatobiliary: Diffuse hepatic steatosis is seen. No suspicious liver lesions. The gallbladder is unremarkable. The pancreas is within normal limits Lymphatics: The spleen is not enlarged. There is hypermetabolic adenopathy within the mediastinum involving the right tracheoesophageal groove superiorly. There is anterior mediastinal adenopathy as well as paratracheal, pre and subcarinal adenopathy. AP window and bilateral hilar adenopathy is present. These are not significantly changed when compared to previous. These remain suspicious for lymphoma. Postoperative changes of the left axilla are seen. There is abnormal attenuation present without significant activity. Less than 1 cm lymph nodes are seen within the abdomen and pelvis. No hypermetabolic adenopathy is appreciated : The adrenal glands are normal configuration. The kidneys demonstrate symmetric enhancement without significant collecting system dilatation. No solid mass appreciated. Prostate is not enlarged. The bladder is not well distended GI: Bowel-gas pattern is nonobstructive. No focal bowel abnormality seen Musculoskeletal: No significant osseous abnormality is appreciated. IMPRESSION 1. Persistent hypermetabolic adenopathy within the mediastinum and bilateral sue not significantly changed since previous study. This remains suspicious for lymphoma 2. Abnormal attenuation within the left axilla redemonstrated. This is similar to the previous. No significant associated hypermetabolic activity seen on today's study. 3. Hepatic steatosis. Electronically signed by: ELAINA LIEBERMAN MD, Staff Radiologist Date of Signature: 01/22/2025 10:39:35 Procedure Note Elaina Lieberman MD - 01/22/2025 EXAMINATION: PET CT TUMOR IMAGING SKULL BASE TO MID THIGH 01/22/2025 INDICATIONS: Diffuse large b-cell lymphoma, intrathoracic lymph nodes. Diffuse largeB-cell lymphoma. Follow-up subsequent treatment strategy. COMPARISON: Prior CT-PET 10/17/2024 TECHNIQUE: Following the administration of 11.85 millicuries F 18 FDG, CT PET imageswere performed from the skull base through the mid thighs. Fused CT PETimages were reviewed at the workstation. Glucose 188. A dose lowering technique was used for this procedure, which may include,but is not limited to, dose reduction technique(s), automated exposurecontrol technique(s), use of iterative reconstruction technique(s), andALARA (as low as reasonably achievable) or ALARA/IMAGE Gentlytechnique(s). FINDINGS: Head neck: No mass or abnormal activity is identified within the brainparenchyma. Sinus disease is likely inflammatory. Less than 1 cm lymphnodes are seen within the neck. No hypermetabolic adenopathy is seenwithin the neck. Thyroid is unremarkable Cardiovascular: Thoracic aorta is intact without aneurysmal dilatation.No significant coronary artery calcification is seen heart size isprobably within normal limits. Lungs: No suspicious pulmonary nodules are appreciated. There is somesubtle ground-glass opacities present. Hepatobiliary: Diffuse hepatic steatosis is seen. No suspicious liverlesions. The gallbladder is unremarkable. The pancreas is within normallimits Lymphatics: The spleen is not enlarged. There is hypermetabolicadenopathy within the mediastinum involving the right tracheoesophagealgroove superiorly. There is anterior mediastinal adenopathy as well asparatracheal, pre and subcarinal adenopathy. AP window and bilateralhilar adenopathy is present. These are not significantly changed whencompared to previous. These remain suspicious for lymphoma.Postoperative changes of the left axilla are seen. There is abnormalattenuation present without significant activity. Less than 1 cm lymphnodes are seen within the abdomen and pelvis. No hypermetabolicadenopathy is appreciated : The adrenal glands are normal configuration. The kidneys demonstratesymmetric enhancement without significant collecting system dilatation.No solid mass appreciated. Prostate is not enlarged. The bladder is notwell distended GI: Bowel-gas pattern is nonobstructive. No focal bowel abnormalityseen Musculoskeletal: No significant osseous abnormality is appreciated. IMPRESSION 1. Persistent hypermetabolic adenopathy within the mediastinum andbilateral sue not significantly changed since previous study. Thisremains suspicious for lymphoma 2. Abnormal attenuation within the left axilla redemonstrated. This issimilar to the previous. No significant associated hypermetabolicactivity seen on today's study. 3. Hepatic steatosis. Electronically signed by: ELAINA LIEBERMAN MD, Staff Radiologist Date of Signature: 01/22/2025 10:39:35 Dawna Dodson APRN, CNP IMG PET F inal Result * LACTATE DEHYDROGENASE (LD) (01/22/2025 7:43 AM CDT) Only the most recent of2 resultswithin the time period is included. LDH 158 140 - 271 U/L [facility] Blood 01/22/2025 7:43 AM CDT Narrative [facility] 01/22/2025 11:02 AM CDT Release to patient->Immediate Dawna Dodson APRN, CNP CHEMISTRY ORDERAB LES Final Result [facility] [place] [address], * (ABNORMAL) CMP (COMPREHENSIVE METABOLIC PANEL) (01/22/2025 7:43 AM CDT) Only the most recent of2 resultswithin the time period is included. Glucose 197(H) 70 - 105 mg/dL [facility] Blood Urea Nitrogen 18 7 - 25 mg/dL [facility] Creatinine 0.6(L) 0.7 - 1.3 mg/dL [facility] Sodium 135(L) 136 - 145 mEq/L [facility] Potassium 4.2 3.5 - 5.1 mEq/L [facility] Chloride 102 98 - 107 mEq/L [facility] Bicarbonate 24 21 - 31 mEq/L [facility] Total Bilirubin 0.5 0.3 - 1.0 mg/dL [facility] Alk. Phosphatase 133(H) 34 - 104 U/L [facility] Aspartate Aminotransferase 21 13 - 39 U/L [facility] Alanine Aminotransferase 37 7 - 52 U/L [facility] Total Protein 6.3(L) 6.4 - 8.9 g/dL [facility] Albumin 4.5 3.5 - 5.7 g/dL [facility] Calcium 9.4 8.6 - 10.3 mg/dL [facility] Anion Gap 13.2 7.0 - 15.0 mEq/L [facility] Globulin 1.8(L) 2.0 - 3.5 g/dL [facility] EGFR 126 >60 ml/min/1. 73m2 [facility] Comment: This eGFR is calculated using 2020 CKD-EPI Creatinine equation without race modifier based on the NKF-ASN task force recommendations Equation: oNNN=187*min(SCr/k,1)a*max(SCr/k,1)-1.200*0.9938Age*1.012 (if female), where SCr is serum creatinine, k is 0.7 for females and 0.9 for males, and a is -0.241 for females and -0.302 for males Blood 01/22/2025 7:43 AM CDT Narrative [facility] - 01/22/2025 11:02 AM CDT Release to patient->Immediate IS THE PATIENT REQUIRED TO BE FASTING FOR 8 HOURS?->No us Dawna Dodson KILN BURNER HELPER, BRAKE HOLDER CHEMISTRY ORDERAB LES Final Result [facility] [address] [place] [address], * (ABNORMAL) COMPLETE BLOOD COUNT (CBC) WITH DIFF (01/22/2025 7:43 AM CDT) WBC 8.7 4.0 - 10.0 10*3/uL [facility] HGB 16.6 13.7 - 17.5 g/dL [facility] HCT 45.9 40.1 - 51.0 % [facility] PLT 205 163 - 369 10*3/uL [facility] MPV 8.8(L) 9.4 - 12.4 fL [facility] RBC 5.16 4.63 - 6.08 10*6/uL [facility] MCV 89 79 - 95 fL [facility] MCH 32.2 25.6 - 32.2 pg [facility] MCHC 36.2 32.2 - 36.5 g/dL [facility] RDW 12.4 11.6 - 14.4 % [facility] Absolute Neutrophil Count 6,358 cells/uL [facility] Absolute Seg Count 6,358 1,440 - 6,600 cells/uL [facility] Absolute Lymph Count 784 760 - 4,000 cells/uL [facility] Absolute [place] Count 1,307(H) 160 - 1,200 cells/uL [facility] Absolute Eos Count 261 0 - 300 cells/uL [facility] Segmented Neutrophils 73(H) 36 - 66 % [facility] Lymphocytes 9(L) 19 - 40 % [facility] Monocytes 15(H) 4 - 12 % [facility] Eosinophils 3 0 - 3 % [facility] WBC Estimate Normal [facility] Platelet Estimate Normal [facility] RBC Morphology Normal [facility] Blood 01/22/2025 7:43 AM CDT Narrative [facility] - 01/22/2025 10:42 AM CDT Release to patient->Immediate us Dawna Dodson KILN BURNER HELPER, BRAKE HOLDER HEMATOLOGY ORDERA BLES Final Result [facility] [address] [place] [address], * (ABNORMAL) CBC WITH AUTO DIFF [place] (12/11/2024 9:00 AM FERTILIZER APPLICATOR) WBC 7.9 4.0 - 10.0 10*3/uL [facility] HGB 15.8 13.7 - 17.5 g/dL [facility] HCT 46.9 40.1 - 51.0 % [facility] PLT 242 163 - 369 10*3/uL [facility] MPV 9.4 9.4 - 12.4 fL [facility] RBC 4.93 4.63 - 6.08 10*6/uL [facility] MCV 95 79 - 95 fL [facility] MCH 32.0 25.6 - 32.2 pg [facility] MCHC 33.7 32.2 - 36.5 g/dL [facility] RDW 12.4 11.6 - 14.4 % [facility] Neutrophils % 71.7(H) 36.0 - 66.0 % [facility] Lymphocytes % 10.8(L) 19.0 - 40.0 % [facility] Monocytes % 12.5(H) 4.1 - 12.1 % [facility] Eosinophils % 3.9(H) 0.0 - 3.5 % [facility] Basophils % 0.6 0.0 - 1.0 % [facility] Absolute Neutrophils 5.7 1.4 - 6.6 10*3/uL [facility] Absolute Lymphocytes 0.9 0.8 - 4.0 10*3/uL [facility] Absolute Monocytes 1.0 0.2 - 1.2 10*3/uL [facility] Absolute Eosinophils 0.3 0.0 - 0.4 10*3/uL [facility] Absolute Basophils 0.1 0.0 - 0.1 10*3/uL [facility] 12/11/2024 9:00 AM FERTILIZER APPLICATOR Marc Henley MD LAB SEND OUTS Final Result [facility] [address] [place] [address], from Last 3 Months Insurance [facility] Care Teams Division Human Resources Manager Relationship Specialty Start Date End Date Provider, Unknown UNKNOWN PCP - General 05/23/24 Marc Henley MD [address] [place] [phone] Consulting Physician Oncology 05/28/24
--- OUTSIDE RECORDS SUMMARY | 2025-01-26 08:16 | XMS_ITS | Encounter Summary ---
Author Organization [facility] Address 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 CHIEF COMPLAINT eczema needs FMLA papers filled out was seen in [place] a few days ago for eczema exacerbation, was given keflex , elimite, prednisone, benadryl, rash is a lot better but still mild persistent itch HISTORY: HISTORY: 305.1-TOBACCO ABUSE The patient continues to smoke regularly despite the awareness that this is harmful. 346.90-MIGRAINE HEADACHE The patient's migraine headaches have worsened.may have tried a tryptan that may have helped 692.9-ECZEMA The dermatitis has worsened. PHYSICAL EXAMINATION: CONSTITUTIONAL: GENERAL APPEARANCE: Healthy appearing [...] hepatosplenomegaly, tenderness or nodularity. Kidneys not palpable. SKIN: RASH/LESION #1 LOCATION: both arms and legs eczema rash with papules and resolving pustules, excoriation ASSESSMENT/PLAN: 305.1-TOBACCO ABUSE ASSESSMENT: The patient continues to smoke and was strongly advised to discontinue tobacco productscompletely.wants ti try chantix MEDICATIONS: CHANTIX STARTING MONTH GREGG ORAL MISCELLANEOUS 0.5 MG X 11 & 1 MG X 42, Take as directed, 1 Dispensed, status: NEW PRESCRIPTION, 11/29/2007. CHANTIX CONTINUING MONTH GREGG ORAL TABLET 1 MG, take as directed, 1 Dispensed, 3 Fills, status: NEW PRESCRIPTION, 11/29/2007. 346.90-MIGRAINE HEADACHE ASSESSMENT: The patient's migraine headaches have worsened. The patient uses tryptans acutely with good results. MEDICATIONS: IMITREX ORAL TABLET 100 MG, 1 Every Day, 9 Dispensed, 5 Fills, status: NEW PRESCRIPTION, 11/29/2007. 692.9-ECZEMA ASSESSMENT: The patient's dermatitis has improved.cont meds a splanned HEALTH MAINTENANCE: DISCUSSED SMOKING: S. SEXUAL ACTIVITY DISCUSSED: 11/19. SUBSTANCE ABUSE DISCUSSED: 11/19. INJURY PREVENTION DISCUSSED: 11/19. DIET AND EXERCISE DISCUSSED: 11/19. PREVENTIVE COUNSELING The patient was counseled regarding the appropriate use of alcohol, diet, regular sustained exercise for at least 30 minutes 3-4 times per week, methods to avoid household and recreational injuries, adult immunizations, the use of condoms for the prevention of HIV and other sexually transmitted diseases, the proper use of sunscreen and protective clothing, testicular self-examination on a monthly basis, tobacco use, prevention of youth violence. RETURN VISIT : Patient is to return on an as needed basis.FMLA forms completed in detail Electronically Signed by: Trevor Womack MD on Thursday, November 29, 2007 documented in this encounter Plan of Treatment Not on file documented as of this encounter Visit Diagnoses Not on filedocumented in this encounter Care Teams Twister Operator Relationship Specialty [place] [id number] [phone] PCP - General 03/17/08 documented as of this encounter
--- OUTSIDE RECORDS SUMMARY | 2025-01-26 08:16 | XMS_ITS | Clinical Summary ---
Author Organization [facility] Address [address] [place] [address] Care Team Providers Care Otter Trawler Boatswain Name Role Phone Trevor Mistry MD Primary Care Provider [phone] Marc Henley MD Unavailable [phone] Allergies No known active allergies Medications insulin lispro, 1 Unit Dial, (HUMALOG) 100 UNIT/ML injection (PEN) Inject into the skin 3 (three) times daily before meals. Sliding scale Active Continuous Glucose Casting Wheel Operator Helper (DEXCOM G7 RADIOLOGIC TECHNOLOGIST CHIEF) Device see administration instructions. 4 Active Continuous Glucose Sensor (DEXCOM G7 SENSOR) Misc CHANGE EVERY 10 DAYS 4 Active SEMGLEE, YFGN, 100 UNIT/ML Solution Pen-injector Inject 30 Units into the skin every morning. 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 ([facility]) 05/30/2024 Chest wall mass 05/21/2024 Migraine headache 07/20/2006 Tobacco use disorder 07/20/2006 Allergic rhinitis 07/20/2006 Encounters Date Type Department Care Team Description 12/18/2024 1:00 PM UNITIZER Office Visit [facility] [address] [address] Marva Hannah MD Postop Followup (FOB, MED) 12/18/2024 Travel 12/02/2024 7:30 AM UNITIZER - 12/02/2024 11:06 AM UNITIZER [facility] [place] [place] [address] [place] [place] [address] Marva Hannah MD FIBEROPTIC BRONCHOSCOPY AND MEDIASTINOSCOPY 12/02/2024 7:25 AM UNITIZER Anesthesia Event [facility] [place] [place] [address] Thea Liriano MD [place], Samantha Rae, [facility] 12/02/2024 5:28 AM UNITIZER - 12/02/2024 10:38 AM UNITIZER Hospital Encounter [facility] [place] [place] [address] Marva Hannah MD Discharge Disposition: Home or Self Care (Routine Discharge) 12/02/2024 Travel 12/01/2024 Telephone [facility] [address] [address] Marva Hannah MD Pre-op Surgery/Cosmetic 11/25/2024 7:52 AM UNITIZER - 11/25/2024 8:58 AM UNITIZER Hospital En[facility] [place] [address] Marva Hannah MD Discharge Disposition: Home or Self Care (Routine Discharge) 11/25/2024 7:51 AM UNITIZER Hospital Encounter [facility] [place] [address] Marva Hannah MD Discharge Disposition: Home or Self Care (Routine Discharge) 11/25/2024 Travel 11/20/2024 10:30 AM UNITIZER Office Visit [facility] [address] [address] Marva Hannah MD Other (Mediastinal and Hilar Lymphadenopathy ) 11/20/2024 Travel from Last 3 Months Family History Medical History Relation Comments Diabetes Father Cancer Maternal Uncle lymphoma Diabetes Mother Cancer Other Relation Status Comments Father Maternal Uncle Mother Other Social History Tobacco Use Types Packs/Day Years Used Date Smoking Tobacco: Every Day Cigarettes 2 18 Started: 2003; Last attempted to quit: 2021 Tobacco Cessation:Ready to Q uit: No; Counseling Given: Yes Alcohol Use Standard Drinks/Week Comments Yes 12 (1 standard drink = 0.6 oz pu re alcohol) depending on day [facility] Utilities Answer Date Recorded In the past 12 months has th e [employer], [employer], oil, or water etaskr threatened to shut off services in your [...] and heating? Not hard at all 05/21/2024 PHQ-2 Answer Date Recorded Patient Health Questionnaire-2 Score 0 08/27/2024 Hunger Vital Sign Answer Date Recorded Within [...] any time in the past 12 m [facility], were you homeless or living in a longterm (including now)? No 05/21/2024 Sex and Gender Information Value Date Recorded Sex Assigned at Male 11/25/2024 7:49 AM UNITIZER Legal Sex Male 6:42 PM CDT Gender Identity Not on file Sexual Orientation Not on file Last Filed Vital Signs Vital Sign Reading Time Taken Comments Blood Pressure 130/88 12/18/2024 12:51 PM UNITIZER Pulse 97 12/18/2024 12:51 PM UNITIZER Temperature 36.7 C (98 F) 12/18/2024 12:51 PM UNITIZER Respiratory Rate 18 12/18/2024 12:51 PM UNITIZER Oxygen Saturation 97% 12/18/2024 12:51 PM UNITIZER Inhaled Oxygen Concentration - - Weight 92.7 kg (204 lb 5.9 oz) 12/18/2024 12:51 PM UNITIZER Height 167.6 cm (5' 6 ) 12/18/2024 12:51 PM UNITIZER Body Mass Index 32.99 12/18/2024 12:51 PM UNITIZER Plan of Treatment Health Maintenance Due Date Last Done Comments Kidney Health Evaluation 1986 Lipid Panel 1986 Annual Physical 1989 COVID-19 Vaccine (#1) 1991 Pneumococcal Vaccine: Pediat rics (0 to 5 Years) and At-Risk Patients (6 to 64 Years) (1 of 2 - PCV) 1992 Diabetes: Retinopathy Eye Exam 2004 Hepatitis C 2004 Hepatitis B Vaccines (1 of 3 - 19+ 3-dose series) 2005 Influenza Adult (#1) 2024 PHQ-2 (Physician [place]) 11/12/2024 08/27/2024 Hemoglobin A1C 11/21/2024 05/21/2024 DTaP, Tdap and Td Vaccines ( 2 - Td or Tdap) 06/15/2029 06/15/2019 HPV Vaccines Aged Out No longer eligi ble based on patient's age to complete this topic Meningococcal B Vaccine Aged Out No l onger eligible based on patient's age to complete this topic Meningococcal Vaccine Aged Out No radha ankita eligible based on patient's age to complete this topic RSV Immunizations Under 20 Months Aged Out No longer eligible based on patient's age to complete this topic Procedures Procedure Name Priority Date/Time Associated Diagnosis Comments XR CHEST PORTABLE STAT 12/02/2024 9:2 9 AM UNITIZER POCT GLUCOSE - IZQUIERDO DOCKED DEVICE Routine 12/02/2024 9:15 AM UNITIZER FLOW CYTOMETRY Routine 12/02/2024 7:57 AM UNITIZER ART LINE PLACEMENT Routine 12/02/2024 7: 37 AM UNITIZER THORACOSCOPY W DIAGNOSITC BIOPSY OF LUNG INFILTRATES 12/02/2024 7:25 AM UNITIZER R59.0- MEDIASTINAL AND HILAR LYMPHADONAPATHY Case Notes SCHED BY PHONE 11/20/24 [facility] PRETEST 11/25/24 0800 POCT GLUCOSE - IZQUIERDO DOCKED DEVICE Routine 12/02/2024 6:31 AM UNITIZER PATHOLOGY Routine 12/02/2024 12:00 AM UNITIZER XR CHEST PA+LAT Routine 11/25/2024 8:49 AM UNITIZER Mediastinal adenopathy TYPE & SCREEN Routine 11/25/2024 8:32 AM UNITIZER Mediastinal adenopathy BASIC METABOLIC PANEL Routine 11/25/2024 8:32 AM UNITIZER Mediastinal adenopathy PARTIAL THROMBOPLASTIN TIME,PTT Routine 11/25/2024 8:32 AM UNITIZER Mediastinal adenopathy PROTHROMBIN TIME, VENOUS Routine 11/25/2024 8:32 AM UNITIZER Mediastinal adenopathy CBC W/DIFF AUTOMATED Routine 11/25/2024 8:32 AM UNITIZER Mediastinal adenopathy MRSA SCREENING Routine 11/25/2024 8:31 AM UNITIZER Mediastinal adenopathy HEMOGLOBIN, GLYCOSYLATED Routine 05/21/2024 3:34 AM CDT from Last 3 Months or Most Recently Relevant to Health Maintenance Results * XR CHEST PORTABLE (12/02/2024 9:29 AM UNITIZER) Anatomical Region Laterality Modality Chest Radiographic Shara ging 12/02/2024 9:33 AM UNITIZER Impressions 12/02/2024 9:33 AM UNITIZER =====IMPRESSION:===== Minimal left basilar atelectasis. No acute findings. Ordered By: MARVA HANNAH Interpreted By: Hawk Dockery MD, 12/02/2024 9:33 AM Narrative 12/02/2024 9:33 AM UNITIZER [place] [address] Examination: Chest x-ray 1 view Exam date/time: 12/02/2024 9:12 AM Reason For Exam: post mediastinoscopy Comparison: Chest radiograph 11/25/2024. Technique: Upright AP view of the chest demonstrated. Findings: Right PIC line with distal tip projecting over the SVC. The cardiac silhouette, mediastinal contours, and pulmonary vessels appear normal. The lungs are clear. No pneumothorax. Minimal left basilar atelectasis. No consolidations or effusions are seen. Procedure Note Hawk Dockery MD - 12/02/2024 [place] [address] Examination: Chest x-ray 1 view Exam date/time: 12/02/2024 9:12 AM Reason For Exam: post mediastinoscopy Comparison: Chest radiograph 11/25/2024. Technique: Upright AP view of the chest demonstrated. Findings: Right PIC line with distal tip projecting over the SVC. Thecardiac silhouette, mediastinal contours, and pulmonary vessels appearnormal. The lungs are clear. No pneumothorax. Minimal left basilaratelectasis. No consolidations or effusions are seen. =====IMPRESSION:===== Minimal left basilar atelectasis. No acute findings. Ordered By: MARVA HANNAH Interpreted By: Hawk Dockery MD, 12/02/2024 9:33 AM Marva Hannah MD GENERAL IMAGING Final Result * (ABNORMAL) POCT glucose (12/02/2024 9:15 AM UNITIZER) Only the most recent of2 resultswithin the time period is included. GLUCOSE POC 175(H) 70 - 99 mg/dL 12/02/2024 9:[address] [facility] 12/02/2024 9:15 AM UNITIZER Marva Hannah MD POCT ORDERABLES - DEVICE Fin al Result [facility] [address] [place] [id number], * Flow Cytometry (12/02/2024 7:57 AM UNITIZER) FLOW CYTOMETRY RESULTS [facility] Department of Laboratory Medicine [address] [place] [address] , extension [phone] Pathology Report Flow Cytometry Report Name: FELIX DOLL Specimen #: [id number] Age: 7 1985 (Age: 39) Location: [facility] Sex: M Procedure Date: 12/02/2024 Hospital #: [id number] Date Received: 12/02/2024 Date Reported: 12/04/2024 Provider: MARVA HANNAH MD Source: Lymph node, right level 4 paratracheal (See case [id number]) FINAL DIAGNOSIS: Lymph node, right level 4, paratracheal, flow cytometric analysis: -B-cells are essentially absent -There is no immunophenotypic evidence of an abnormal population of T lymphocytes Result: The sample is adequate with a viability of approximately 90%. The B cells represent less than 1% of the lymphocytes, (less than 1% of the total events analyzed). Too few events for B-cell surface immunoglobulin light chains evaluation. The T-cells represent 87% of lymphocytes (86% of total cellularity) with a CD4:CD8 ratio of 3.0. Tested: CD45, CD19, CD20, Surface Byron, Surface Lambda, CD5, CD10, CD38, CD34, CD14, CD117, CD4, CD8, CD3, CD7, CD56, CD23, CD200. This case was interpreted and signed out at [facility], [address] [place] [address]. Electronically Signed Out NIKKI BENEDICT MD This test was developed and its performance characteristics determined by [facility]. It has not been cleared or approved by the U.S. Food and Drug Administration. However, the use of Analyte Specific Reagents does not require FDA approval. [facility] 12/02/2024 7:57 AM UNITIZER 12/02/2024 12:22 PM UNITIZER Comment:Lymph node, right le anne 4 paratracheal (See case [id number]) Marva Hannah MD PATHOLOGY/CYTOLOGY ORDERABLE S Final Result [facility] [address] [place] [address], [id number] * ART LINE PLACEMENT (12/02/2024 7:37 AM UNITIZER) Narrative Thea Liriano MD - 12/02/2024 7:37 AM UNITIZER Thea Liriano MD 12/02/2024 7:53 AM Art Line Date/Time: 12/02/2024 7:37 AM Performed by: Thea Liriano MD Authorized by: Thea Liriano MD Patient Location: OR Placed Outside of This Facility?: No Size: 20 Orientation: Right Location: Radial Site Prep: Chlorhexadine Local Anesthetic: None Insertion Attempts: 1 Ultrasound-guided Placement: No Secure Method: Taped and skin barrier Patient Tolerance: Tolerated well us Thea Liriano MD IN ANESTHESIA Final Res ult * Pathology (12/02/2024 12:00 AM UNITIZER) PATHOLOGY [facility] Department of Laboratory Medicine [address] [place] [address] , extension [phone] Pathology Report Addendum Surgical Pathology Report Name: FELIX DOLL Specimen #: [id number] Age: 7 1985 (Age: 39) Location: [facility] Sex: M Procedure Date: 12/02/2024 Hospital #: [id number] Date Received: 12/02/2024 Date Reported: / Provider: MARVA HANNAH MD Source: Lymph node right level 4 peritracheal Clinical History: Mediastinal and hilar lymphadenopathy FINAL DIAGNOSIS: A. Lymph node, right level 4, paratracheal, excision: -Lymph node with non-necrotizing granulomatous inflammation; see comment B. Lymph node, right level 4, paratracheal, for flow cytometry, excision: -Lymphocytes present on touch preparations -Entirely submitted for flow cytometric analysis ([id number]); see comment Diagnosis Comment: Part A demonstrates non-necrotizing granulomatous inflammation. AFB stain is negative on blocks A1 and A2. GMS stain is pending on both blocks and results will be issued in an addendum. There is no morphologic evidence of a large cell lymphoma in this sample. Part B is entirely submitted for flow cytometric analysis ([id number]) and demonstrates essentially absent B-cells with unremarkable T-cells. Gross Description: A. Received fresh, labeled with a patient label and as right level 4 peritracheal lymph node is a 1.0 x 0.5 x 0.4 cm pink-red lymph node. The specimen is bisected. One half is submitted for frozen section analysis and subsequent permanent sections in cassette 1. The remaining half is submitted in cassette 2. B. Received fresh, labeled with a patient label and as right level 4 peritracheal lymph node for flow cytometry are fragments of lymphoid tissue measuring 1.4 x 0.8 x 0.4 cm in aggregate. The tissue is entirely submitted for flow cytometric analysis per surgeon request. Two touch preparation slides are made. Gross examination (when applicable) was performed at [facility], [address] [place] [address]. This case was interpreted and signed out at [facility], [address] [place] [address]. All immunohistochemical and histochemical tests were developed by and performed at [facility], [address] [place] [address]. All tests reported here have not been cleared or approved by the U.S. Food and Drug Administration (FDA). This laboratory is regulated under CLIA as qualified to perform high-complexity testing. These tests are used for clinical purposes. They should not be regarded as investigational or for research. Positive and negative controls show appropriate reactivity. Intraoperative Diagnosis: A. FROZEN SECTION DIAGNOSIS FS 1) Right level 4 paratracheal lymph node for frozen section analysis: -Favor granulomatous inflammation -No overt evidence of large cell lymphoma, defer to permanent (Kin Benedict MD) Please note: The frozen section was performed and interpreted at [facility] in [place], [place]. B. TOUCH PREPARATION DIAGNOSIS TP 1) Right level 4 paratracheal lymph node for flow cytometry: -Specimen entirely submitted for flow per surgeon request (Kin Benedict MD) Please note: The touch preparation was performed and interpreted at [facility] in [place], [place]. Electronically Signed Out NIKKI BENEDICT MD Addenda/Procedures Addendum Date Ordered: 12/11/2024 Status: Signed Out Date Complete: 12/11/2024 By: NIKKI MACIEL Date Reported: 12/11/2024 Addendum Diagnosis {Not Entered} Addendum Comment This addendum is created to report on the GMS stains performed on blocks 1 and 2, performed and interpreted at [facility] ([place], [place]). See external report for details (media tab in Epic). GMS on both blocks is negative. The final diagnosis remains unchanged. This addendum was interpreted and signed out at [facility], [address] [place] [id number]. NIKKI BENEDICT MD [facility] TISSUE LYMPH NODE SPECIMEN / Unknown 12/02/2024 7:56 AM UNITIZER Tissue specimen (specimen) LYMPH NODE SPECIMEN / Unknown 12/02/2024 7:57 AM UNITIZER Marva Hannah MD PATHOLOGY/CYTOLOGY ORDERABLE S Final Result [facility] [address] [place] [address], [id number] * XR CHEST PA+LAT (11/25/2024 8:49 AM UNITIZER) Anatomical Region Laterality Modality Chest Radiographic Shara ging 11/25/2024 9:25 AM UNITIZER Impressions 11/25/2024 9:26 AM UNITIZER IMPRESSION:===== No acute findings. Referred By: Interpreted By: Lars Aquino MD, 11/25/2024 9:25 AM Narrative 11/25/2024 9:26 AM UNITIZER [address] [address] EXAMINATION: PA AND LATERAL CHEST Exam date/time: 11/25/2024 8:40 AM Reason For Exam: pre op, Hx Lymphoma Comparison: None Technique: 2 views. Findings: Heart size normal. Proximal airways unremarkable. No suspicious pulmonary lesion, pneumothorax, or pleural effusion. Right PICC terminates in the midportion SVC. No evidence of complication. ===== Procedure Note Lars Aquino MD - 11/25/2024 [facility] [address] [place], [place] [address] EXAMINATION: PA AND LATERAL CHEST Exam date/time: 11/25/2024 8:40 AM Reason For Exam: pre op, Hx Lymphoma Comparison: None Technique: 2 views. Findings: Heart size normal. Proximal airways unremarkable. No suspiciouspulmonary lesion, pneumothorax, or pleural effusion. Right PICC terminates in the midportion SVC. No evidence ofcomplication. ===== IMPRESSION:===== No acute findings. Referred By: Interpreted By: Lars Aquino MD, 11/25/2024 9:25 AM us Marva Hannah MD GENERAL IMAGING Final Result * TYPE & SCREEN - Verify expiration date is current (11/25/2024 8:32 AM UNITIZER) ABO/RH O POSITIVE 11/25/2024 9:[address] [facility] ANTIBODY SCREEN NEGATIVE 11/25/2024 9:[address] [facility] SAMPLE EXPIRATION 12/05/2024,2 359 12/02/2024 7:[address] [facility] BB COMMENT NO HISTORY OF TRANSFUSIONS , OR ANTIBODIES, NEW SPECIMEN NOT NEEDED 12/02/2024 7:[address] [facility] 11/25/2024 8:32 AM UNITIZER us Marva Hannah MD BLOOD BANK TEST ORDERABLES F inal Result [facility] [address] [place] [address], [place] [phone] * THROMBOPLASTIN TIME PARTIAL,PTT (11/25/2024 8:32 AM UNITIZER) PTT 31.1 25.1 - 36.5 SEC 11/25/2024 9:[address] [facility] 11/25/2024 8:32 AM UNITIZER us Marva Hannah MD LABORATORY Final Result Performing Organization Address City/[facility]/ZIP Co de Phone Number [facility] [address] [place] [address], * PROTHROMBIN TIME, VENOUS (11/25/2024 8:32 AM UNITIZER) Pathologist [facility] PROTIME 11.1 10.2 - 12.9 SEC 11/25/2024 9:[address] [facility] INR 1.0 11/25/2024 9:[address] [facility] Comment: Recommended INR Therapeutic Goals: 2.0-3.0 Routine Therapy 2.5-3.5 Mechanical Prosthetic Valves (High Risk) 11/25/2024 8:32 AM UNITIZER us Marva Hannah MD LABORATORY Final Result [facility] [address] [place] [address], * (ABNORMAL) BASIC METABOLIC PANEL (11/25/2024 8:32 AM UNITIZER) Pathologist [facility] GLUCOSE 189(H) 70 - 99 MG/DL 11/25/2024 9:[address] [facility] BUN 9 7 - 18 MG/DL 11/25/2024 9:19 AM [facility] CREATININE S/P/B 0.71 0.7 - 1.3 MG/DL 11/25/2024 9:[address] [facility] SODIUM S/P/B 136 136 - 145 MMOL/L 11/25/2024 9:19 AM [facility] POTASSIUM S/P/B 4.2 3.5 - 5.1 MMOL/L 11/25/2024 9:19 AM [facility] CHLORIDE S/P/B 106 97 - 115 MMOL/L 11/25/2024 9:19 AM [facility] CO2 24.5 21 - 32 MMOL/L 11/25/2024 9:19 AM [facility] CALCIUM S/P/B 9.6 8.5 - 10.1 MG/DL 11/25/2024 9:19 AM [facility] ANION GAP 5.5 2 - 10 MMOL/L 11/25/2024 9:19 AM [facility] BUN CREATININE RATIO 12.7 6 - 26 11/25/2024 9:19 AM [facility] GFR ESTIMATE >90 >90 ML/MIN/1.7 3 M2 11/25/2024 9:19 AM [facility] Comment: NOTE: eGFR is not calculated for patients <18 years of age or gender unknown. This is an estimated GFR calculation using the new CKD EPI creatinine equation without race and so does not require a correction factor for race. This estimated GFR should not be used for calculating drug doses. 11/25/2024 8:32 AM UNITIZER Marva Hannah MD LABORATORY Final Result [facility] [address] [place] [address], * (ABNORMAL) CBC W/DIFF AUTOMATED (11/25/2024 8:32 AM UNITIZER) WBC 8.38 4.5 - 11.0 x10'3/uL 11/25/2024 8:54 AM [facility] RBC 4.66(L) 4.70 - 6.10 x10'6/uL 11/25/2024 8:54 AM [facility] HGB 14.9 14.0 - 18.0 G/DL 11/25/2024 8:54 AM [facility] HCT 44.4 43.0 - 54.0 % 11/25/2024 8:54 AM [facility] MCV 95.3(H) 80.0 - 94.0 FL 11/25/2024 8:54 AM [facility] MCH 32.0(H) 27.0 - 31.0 PG 11/25/2024 8:54 AM [facility] MCHC 33.6 32.0 - 36.0 G/DL 11/25/2024 8:54 AM [facility] RDW 12.6 11.5 - 14.5 % 11/25/2024 8:54 AM [facility] PLT 239 130 - 400 x10'3/uL 11/25/2024 8:54 AM [facility] MPV 8.9(L) 9.3 - 12.2 FL 11/25/2024 8:54 AM [facility] DIFFERENTIAL TYPE AUTOMATED DIFFERENTIAL 11/25/2024 8:54 AM [facility] NEUTROPHILS % 75.9 % 11/25/2024 8:54 AM [facility] LYMPHOCYTES % 9.4 % 11/25/2024 8:54 AM [facility] MONOCYTES % 9.9 % 11/25/2024 8:54 AM [facility] EOSINOPHILS 3.9 % 11/25/2024 8:54 AM [facility] BASOPHILS 0.7 % 11/25/2024 8:54 AM [facility] IMMATURE GRANS % 0.2 % 11/25/19 8:54 AM [facility] ABS. NEUTROPHILS 6.35 1.80 - 7.70 x10'3/uL 11/25/2024 8:[address] [facility] ABS. LYMPHOCYTES 0.79(L) 1.00 - 4.80 x10'3/uL 11/25/2024 8:[address] [facility] ABS. MONOCYTES 0.83(H) 0.30 - 0.82 x10'3/uL 11/25/2024 8:54 AM [facility] ABS. EOSINOPHILS 0.33 0.04 - 0.54 x10'3/uL 11/25/2024 8:54 AM [facility] ABS. BASOPHILS 0.06 0.01 - 0.08 x10'3/uL 11/25/2024 8:54 AM [facility] ABS. IMMATURE GRANULOCYTES 0.02 0.00 - 0.49 x10'3/uL 11/25/2024 8:54 AM [facility] 11/25/2024 8:32 AM UNITIZER Marva Hannah MD LABORATORY Final Result [facility] [address] [place] [address], * MRSA SCREENING (11/25/2024 8:31 AM UNITIZER) SPEC DESCRIPTION NASAL 11/25/2024 8:[address] [facility] SPECIAL REQUESTS NO SPECIAL REQUEST 11/25/2024 8:26 AM [facility] CULTURE RESULT NO METHICILLIN RESISTANT STAPHYLOCOCCUS AUREUS ISOLATED 11/26/2024 6:[address] [facility] SPECIMEN FROM INTERNAL NOSE / Unknown 11/25/2024 8:31 AM UNITIZER 11/25/2024 8:32 AM UNITIZER Marva Hannah MD MICROBIOLOGY - GENERAL ORDER BESS Final Result Performing Organization Address [facility] Co de Phone Number [facility] [address] [place] [address], * (ABNORMAL) HEMOGLOBIN, GLYCOSYLATED (05/21/2024 3:34 AM CDT) HGB A1C 6.1(H) <5.7 % 05/21/2024 9:[address] [facility] Comment: ADA GUIDELINES 2010 5.7 TO 6.4% INCREASED RISK OF DIABETES > OR = 6.5% CONSISTENT WITH DIABETES ESTIMATED AVG GLUCOSE 128 mg/dL 05/21/2024 9:[address] [facility] 05/21/2024 3:34 AM CDT Ela Porras H[facility] LABORATORY Final Resul t Performing Organization Address [facility] Co de Phone Number [facility] [address] [place] [address], from Last 3 Months or Most Recently Relevant to Health Maintenance Insurance [facility] Advance Directives * Full Code (Latest Code Status on File) Date Activated Date Inactivated Comments 05/21/2024 1:43 AM 05/28/2024 1:22 PM Care Teams Otter Trawler Boatswain Relationship Specialty Start Date End Date Trevor Mistry MD [address] [place] [address] PCP - General INTERNAL MEDICINE 05/21/24 Marc Henley MD [address] [place] [address] Consulting Physician HEMATOLOGY/ONCOLOGY 06/02/24
--- OUTSIDE RECORDS SUMMARY | 2025-01-26 08:16 | XMS_ITS | Patient Health Summary ---
Author Organization [facility] Address [address] [place] [address] Care Team Providers Care Nuclear Power Reactor Operator Name Role Phone Unavailable Primary Care Provider Unavailabl e Note from [facility],non-owned Affiliates and Associated Physician Practices is amultiple site organization consisting of ambulatory clinics and hospital sitesin [place], [place], [place] and [place]. This disclosure is being madepursuant to the Care Everywhere program and may not contain all information available regarding this patient. Last updated 18.[facility] Active Problems Problem Noted Date Diagnosed Date Chest wall mass 05/20/2024 Social History Tobacco Use Types Packs/Day Years Used Date Smoking Tobacco: Every Day Cigarettes Smokeless Tobacco: Never Alcohol Use Standard Drinks/Week Comments Yes 0 (1 standard drink = 0.6 oz pur e alcohol) Sex and Gender Information Value Date Recorded Sex Assigned at Not on file Gender Identity Not on file Sexual Orientation Not on file Procedures * DERMATOPATH TECHNICAL REPORT(Performed 08/01/2018) * CULTURE AEROBIC(Performed 03/27/2011) Results * DERMATOPATH TECHNICAL REPORT (08/01/2018 12:00 AM CDT) Case Report Dermatopathology Report Case: [id number] Authorizing Provider: Melvi cMqueen MD Collected: 08/01/2018 12:00 AM Pathologist: Emma Shine MD Received: 08/05/2018 06:59 AM Specimens: A) - Skin, right forearm B) - Skin, left thigh 8 2:01 PM CDT DERMATOPATHOLOGY LABORATORY Addendum 1 At the request of the diagnosing physician, the technical component for GMS, Tissue Gram and Tamie on Specimen A and a GMS on Specimen B was performed by [facility] Dermatopathology Laboratory. 2:01 PM [facility] DERMATOPATHOLOGY [facility]ORATORY Addendum electronically signed by Emma Shine MD on 08/07/2018 at 2:01 PM Clinical History A-B: R/O insect bites vs deep fungal vs contact. Check margins. 2:01 PM T DERMATOPATHOLOGY LABORATORY Gross Description Specimen A: Received is one formalin filled container labeled with the patient's name and designated right forearm. The specimen consists of a punch measuring [id number]. The margin is inked green. Jar 0. Specimen B: Received is one formalin filled container labeled with the patient's name and designated left thigh. The specimen consists of a punch measuring [id number]. The margin is inked green. Jar 0. [facility] Dermatopathology [facility] performed the technical component only. [...] characteristic determined by the Dermatopathology Laboratory at [facility]. These tests need not be, and therefore are not, approved by the [place] Food and Drug Administration. The tests are used for clinical purposes. 2:01 PM [facility] DERMATOPATHOLOGY LABORATORY Pathology/Cytology TISSUE SPECIMEN FROM SKIN / Unknown 08/01/2018 08/05/2018 6:59 AM CDT Miscellaneous samples (specimen) TISSUE SPECIMEN FROM SKIN / Unknown 08/01/2018 08/05/2018 6:59 AM CDT Melvi Mcqueen MD LAB - PATHOLOGY/CYT OLOGY ORDERABLES DERMATOPATHOLOGY LABORATORY [facility] - Department of Dermatology [address] [place] [address], 5th Floor Lab B [address] [phone] * (ABNORMAL) CULTURE AEROBIC (03/27/2011 10:00 AM CDT) Culture SEE NOTE(A) [facility] Comment: CULTURE, AEROBIC BACTERIA MICRO NUMBER: [id number] TEST STATUS: FINAL SPECIMEN SOURCE: LEG,RIGHT SPECIMEN QUALITY: ADEQUATE RESULT: Heavy growth of Staphylococcus aureus S.AUREUS INT SUSY AMOX/CLAVULANATE S <4/2 AMP/SULBACTAM S <8/4 CEFAZOLIN S <4 CLINDAMYCIN S 0.5 ERYTHROMYCIN S <0.25 GENTAMICIN S <1 LEVOFLOXACIN S <0.5 OXACILLIN S 0.5 TETRACYCLINE S <1 TRIMETHOPRIM/SULFA S <0.5/9.5 VANCOMYCIN S 2 Legend: S = Susceptible I = Intermediate R = Resistant NS = Not Susceptible * = Not Tested NR = Not Reported nn = See Therapy Comments NO COLLECTION DATE RECEIVED. WE HAVE USED THE DATE THE SPECIMEN WAS RECEIVED BY THIS LABORATORY THE COLLECTION DATE. IF THIS IS INCORRECT, PLEASE CONTACT CLIENT SERVICES. PHONE NUMBER: [phone] Test Performed at: [facility] [address] [address] LYNNE VÁZQUEZ DO Pus specimen (specimen) (Leg, Right) 03/27/2011 10:00 AM CDT 03/24/2011 11:26 PM CDT Narrative [facility] - 03/27/2011 10:00 AM CDT Preferred Lab:->[facility] [place] Vinson MD LAB - MICROBIOLOGY O RDERABLES [facility]
--- OUTSIDE RECORDS SUMMARY | 2025-01-26 08:16 | XMS_ITS | Encounter Summary ---
Author Organization [facility] Address [address] [place] [address] Phone Care Team Providers Care Application Developer Name Role Phone Provider, Unknown Primary Care Provider Unavaila ble Marc Henley MD Unavailable [phone] Reason for Visit * Reason Onset Date Comments Canopy Call 05/30/2024 Encounter Details Date Type Department Care Team (Late st Contact Info) Description 05/30/2024 Telephone [facility] [address] [place] [address] Marc Henley MD [address] [address] Canopy Call Social History Tobacco Use Types Packs/Day Years [...] pleasure in doing things Not at all 05/30/2024 11:12 AM CDT Simon Grigsby CMA Feeling down, depressed, or hopeless Not at all 05/30/2024 11:12 AM CDT Simon Grigsby CMA * Over the past 2 weeks, how often have you been bothered by any of the following problems? Question Answer Date of Assessment Author Patient Health Questionnaire -2 Score 0 05/30/2024 11:12 AM CDT Simon Grigsby CMA documented as of this encounter Miscellaneous Notes * Telephone Encounter - Hafsa Zavala RN - 06/02/2024 10:51 AM CDT LVM for pt informing of message below. Instructed pt to call clinic with any further questions. * Telephone Encounter - Marc Henley MD - 06/02/2024 9:13 AM CDT Do not take the medicine till after pet ct * Telephone Encounter - Nancy Richard RMA - 05/30/2024 4:22 PM CDT Pt was prescribed something for his arm swelling (not sure of the name)but the doctor doesn't want him to take it until his PET scan. The pet scan is on Sunday. Pt wants to know if he can take themedicine until Sunday or Sunday # [phone] Document on 05/30/2024 4:21 AM by Marc Henley MD: General: Clinical question - Phone Nurse, and 1 call documented in this encounter Plan of Treatment Upcoming Encounters Date Type Department Care Team (Late st Contact Info) Description 04/23/2025 9:00 AM CDT Office Visit [facility] [address] [place] [address] Marc Henley MD [facility] [place] [address] documented as of this encounter Visit Diagnoses Not on filedocumented in this encounter Care Teams Application Developer Relationship Specialty Start Date End Date Provider, Unknown UNKNOWN PCP - General 05/23/24 Marc Henley MD [address] [place] [address] Consulting Physician Oncology 05/28/24 documented as of this encounter
--- OUTSIDE RECORDS SUMMARY | 2025-01-26 08:16 | XMS_ITS | Encounter Summary ---
Author Organization [facility] Address 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
--- OUTSIDE RECORDS SUMMARY | 2025-01-26 08:16 | XMS_ITS | Encounter Summary ---
Author Organization [facility] Address [address] [place] [address] Care Team Providers Care Tank Car Cleaner Name Role Phone Trevor Womack MD Primary Care Provider [phone]- [phone] Encounter Details Date Type Department Care Team (Late st Contact Info) Description 07/20/2006 Orders Only [facility] Internal Medicine [address] [address] Trevor Womack MD [address] [place] [address] Social History Tobacco Use Types Packs/Day Years Used Date Smoking Tobacco: Never Assessed Sex and Gender Information Value Date Recorded Sex Assigned at Not on file Legal Sex Male 2:59 AM DIRECTOR OF BANDS Gender Identity Not on file Sexual Orientation Not on file documented as of this encounter Progress Notes * Treovr Womack MD - 08/25/2008 5:02 PM CDT TIME:12:21 pm PATIENT`S HOME PHONE: PATIENT`S WORK PHONE: PATIENT`S INSURANCE: WHO TOOK THE CALL: Su Porras S PROBLEMS: NEW PT HAS A RASH SECTION 1: REQUESTED ACTION ernst 07/20/06 at 12:21 pm: CAN YOU W/I AT 2:45 DOCTOR`S RESPONSE: vijay 07/20/06 at 12:22 pm sure FINAL ACTION: ernst 07/20/06 at 01:02 pm Spoke with patient 07/20/06 at 01:02 pm. * Trevor Womack MD - 08/25/2008 5:00 PM CDT WEIGHT: 188lbs BLOOD PRESSURE: 132/76 Right Arm Sitting NURSE NAME: Lolis VenturaMassiel CHIEF COMPLAINT Patient complains of rash. that is getting worse and has spread over entire body except face within a few months. (new patient) HISTORY: started 6 weeks ago, spreading and getting worse. 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 Currently the patient is off all medication. 477.9-RHINITIS ALLERGIC UNSPECIFIED The allergic rhinitis has not changed and occasional symptoms have been noted since the last visit. The patient relates good tolerance to the medication that is taken on an as needed basis. 305.1-TOBACCO ABUSE The patient continues to smoke regularly despite the awareness that this is harmful. ROS: GENERAL: Normal activity and energy level, no change in appetite. No major weight gain or loss. No malaise, chills, fever, diaphoresis. ALLERGIC/IMMUNOLOGIC: No environmental allergies. EYES: No vision changes or diplopia. ENT: NASAL CONGESTION PRESENT. ENDOCRINE: No heat or cold intolerance, no excessive thirst. CARDIAC: No chest pain, palpitations, orthopnea, dyspnea on exertion, or paroxysmal nocturnal dyspnea. RESPIRATORY: HAS A CONTINUOUS COUGH. SKIN/BREAST/CHEST: NOTES A RASH. HEMATOLOGIC/LYMPHATIC: No anemia, easy bruising, bleeding or swollen nodes. : No dysuria or hematuria. GI: No abdominal pain, nausea, vomiting, diarrhea, constipation, melena, or hematochezia. NEUROLOGIC: HAS HEADACHES. MUSCULOSKELETAL: NOTES BACK PAIN. PSYCHIATRIC: No increased nervousness, mood changes or depression. Coping well. PAST MEDICAL HISTORY: MEDICAL: Migraine headaches. SURGICAL: No previous surgery. CURRENT MEDICATIONS: Patient is currently on no medication. ALLERGIES/ADVERSE REACTIONS: No known drug allergies. FAMILY HISTORY: FATHER: The father is living. No major illnesses are known. MOTHER: The mother is living. Illnesses: Migraine headaches. SIBLINGS: 1) The patient's brother is living. Illnesses: Obesity-Borderline Diabetic SOCIAL HISTORY: MARITAL HISTORY: Single. LIVING WILL: The patient does not have a living will. TOBACCO USE: Currently smokes 1 1/2 PPD, has smoked for less than 5 years. OCCUPATION: . welder fitter gas ALCOHOL: Does not give any significant history of alcohol usage. CAFFEINE: A moderate amount of caffeinated beverages daily. EXERCISES: The patient is not exercising regularly. DIET: Follows no specific diet. PHYSICAL EXAMINATION: CONSTITUTIONAL: GENERAL APPEARANCE: Healthy appearing [...] rhythm. No murmurs, rubs, or gallops. ARTERIAL: Aortic pulses of normal amplitude with no bruits. EDEMA/VARICOSITIES OF EXTREMITIES: No edema or varicosities. GASTROINTESTINAL: ABDOMEN: Soft, non-tender, without masses. Bowel sounds active. LIVER/SPLEEN/KIDNEY: No hepatosplenomegaly, tenderness or nodularity. Kidneys not palpable. SKIN: RASH/LESION #1 LOCATION: diffuse rash over almost entire body except upper ant chest and head / face areas of erythem and lceration with raised ulcrated plaques, and large areas of ulceration and excoriation, no areas of involvement of hands and feet( soles/ palms, No web space involvment ASSESSMENT/PLAN: 346.90-MIGRAINE HEADACHE ASSESSMENT: The patient relates that the migraine headaches are stable. 477.9-RHINITIS ALLERGIC UNSPECIFIED ASSESSMENT: The patient's allergic rhinitis continues to remain stable. 305.1-TOBACCO ABUSE ASSESSMENT: The patient continues to smoke and was strongly advised to discontinue tobacco productscompletely. 782.1-RASH severe rash with diffuse body involvement suspect allergic type reaction, syphilis or scabies unlikley, vesicular rash unlily like pemphigus will treat with steroid and antihistamine and refer derm for further eval, work excuse until we find out what this is MEDICATIONS: PREDNISONE ORAL TABLET 20 MG, 3 TAB daily for 4 days AND THEN 2 daily for 4 days AND THEN 1 daily for 1 week, 27 Dispensed, status: NEW PRESCRIPTION, 07/20/2006. CLARINEX ORAL TABLET 5 MG, 1 Every Morning, 10 Duration/Days Supply, 10 samples given, status: NEW PRESCRIPTION, 07/20/2006. SPECIALTY REFERRAL: DERMATOLOGY Valentino first thing next week RETURN VISIT : Instructed to call if not improving.w/e form today until next Sunday return 07/30 Electronically Signed by: Trevor Womack MD on Thursday, July 20, 2006 documented in this encounter Plan of Treatment Not on file documented as of this encounter Visit Diagnoses Not on filedocumented in this encounter Care Teams Tank Car Cleaner Relationship Specialty [place] [address] [phone] PCP - General 03/17/08 documented as of this encounter
--- OUTSIDE RECORDS SUMMARY | 2025-01-26 08:16 | XMS_ITS | CONTINUITY OF CARE DOCUMENT ---
Author Name kuldip christiansen Address Unknown Organization [facility] Address [address] [place] [address] Phone [phone] Care Team Providers Care Advanced Practice Psychiatric Nurse Name Role Phone Thaddeus GUO, Whitney Unavailable ROXIE GUO, JO-ANN Unavailable INSURANCE PROVIDERS Payer name Policy type / Coverage type [place] red republican ID [id number]
--- OUTSIDE RECORDS SUMMARY | 2025-01-26 08:16 | XMS_ITS | Encounter Summary ---
Author Organization [facility] Address 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 Gender Identity Not on file Sexual Orientation Not on file documented as of this encounter Last Filed Vital Signs Vital Sign Reading Time Taken Comments Blood Pressure 132/76 07/20/2006 2:45 PM CDT Pulse - - Temperature - - Respiratory Rate - - Oxygen Saturation - - Inhaled Oxygen Concentration - - Weight 85.3 kg (188 lb) 07/20/2006 2:45 PM CDT Height - - Body Mass Index - - documented in this encounter Plan of Treatment Not on file documented as of this encounter Visit Diagnoses Not on filedocumented in this encounter Care Teams Anglesmith Helper Relationship Specialty Start Date End Date Trevor Womack [place] [id number] [place] [address] [address] [place] [address] PCP - General 03/17/08 documented as of this encounter
--- OUTSIDE RECORDS SUMMARY | 2025-01-26 08:16 | XMS_ITS | Clinical Summary ---
Author Organization [facility] Address [address] [place] [address] Care Team Providers Care Ice Cream Maker Name Role Phone Unavailable Primary Care Provider Unavailabl e Source Comments [facility],non-owned Affiliates and Associated Physician Practices is amultiple site organization consisting of ambulatory clinics and hospital sitesin [place], [place], [place] and [place]. This disclosure is being madepursuant to the Care Everywhere program and may not contain all information available regarding this patient. Last updated 18.[facility] Active Problems Problem Noted Date Diagnosed Date Chest wall mass 05/20/2024 Family History Medical History Relation Name Comments Allergy (Severe) Neg Hx CVA Neg Hx Cancer Neg Hx Cancer - Skin, Melanoma Neg Hx Cancer - Skin, Non Melanoma Neg Hx Eczema Neg Hx Hemophilia Neg Hx Psoriasis Neg Hx Rashes/Skin Problems Neg Hx Social History Tobacco Use Types Packs/Day Years Used Date Smoking Tobacco: Every Day Cigarettes Smokeless Tobacco: Never Alcohol Use Standard Drinks/Week Comments Yes 0 (1 standard drink = 0.6 oz pur e alcohol) Sex and Gender Information Value Date Recorded Sex Assigned at Not on file Gender Identity Not on file Sexual Orientation Not on file Plan of Treatment Health Maintenance Due Date Last Done Comments HIV SCREENING 2001 HEPATITIS C SCREENING 06/04/2004 DTAP/TDAP/TD VACCINES (1 - Tdap) 2005 HEPATITIS B VACCINE (1 of 3 - 19+ 3-dose series) 2005 PNEUMOCOCCAL VACCINE (1 of 2 - PCV) 2005 COVID-19 VACCINE (1 - 2023-2 5 season) 2024 INFLUENZA VACCINE (#1) 2024 DEPRESSION SCREENING 11/12/2024 ZOSTER VACCINE (1 of 2) 2036 HIB VACCINE Aged Out No longer eligi ble based on patient's age to complete this topic HPV VACCINE Aged Out No longer eligi ble based on patient's age to complete this topic MENINGOCOCCAL (Group B) VACC INE SHARED DECISION-MAKING Aged Out No longer eligibl e based on patient's age to complete this topic MENINGOCOCCAL GROUPS A/C/Y/W VACCINE Aged Out No longer eligible b ased on patient's age to complete this topic
--- OUTSIDE RECORDS SUMMARY | 2025-01-26 08:16 | XMS_ITS | Encounter Summary ---
Author Organization [facility] Address [address] [place] [address] Care Team Providers Care Media Consultant Name Role Phone Trevor Womack MD Primary Care Provider +- [phone] Encounter Details Date Type Department Care Team (Late st Contact Info) Description 12/05/2007 Outpatient Historical [facility] Internal Medicine [address] [address] [place] Wom[place] [id number] [place] [address] Social History Tobacco Use Types Packs/Day Years Used Date Smoking Tobacco: Never Assessed Sex and Gender Information Value Date Recorded Sex Assigned at Not on file Legal Sex Male 2:59 AM CODING ASSISTANT Gender Identity Not on file Sexual Orientation Not on file documented as of this encounter Last Filed Vital Signs Vital Sign Reading Time Taken Comments Blood Pressure 122/86 12/05/2007 11:45 AM CODING ASSISTANT Pulse - - Temperature - - Respiratory Rate - - Oxygen Saturation - - Inhaled Oxygen Concentration - - Weight 80.7 kg (178 lb) 12/05/2007 11:45 AM CODING ASSISTANT Height - - Body Mass Index - - documented in this encounter Plan of Treatment Not on file documented as of this encounter Visit Diagnoses Not on filedocumented in this encounter Care Teams Media Consultant Relationship Specialty Start Date End Date Trevor Womack [place] [id number] [place] [address] [address] [place] [address] PCP - General 03/17/08 documented as of this encounter
--- OUTSIDE RECORDS SUMMARY | 2025-01-26 08:16 | XMS_ITS | Encounter Summary ---
Author Organization [facility] Address 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 PHARMACY NUMBER: [phone] SECTION 1: REQUESTED ACTION licasl 01/13/08 at 01:46 pm: MEDICATION REQUEST: MEDICATION REQUEST: Patient requests a refill. Clobetasol Prop 0.05% cream 60 gr. LF 12/10/07 DOCTOR`S RESPONSE: vijay 01/13/08 at 03:28 pm MEDICATIONS: TEMOVATE EXTERNAL CREAME 0.05 % GRAMS, Apply sparingly CREAM to affected areas TOPICAL TWICE DAILY as needed, 60 Dispensed, status: CONTINUED, 01/13/2008. please advise patient this is a very strong med and he should use sparingly and only on affected areas FINAL ACTION: [email or web address] 01/13/08 at 06:35 pm Spoke with patient 01/14/08 at 02:14 pm. Left message on patient`s recorder or with a family member 01/13/2008 at 06:36 pm. Called pharmacy at 01/13/08 at 06:35 pm. Electronically Signed by: Deborah Bellamy on Monday, January 14, 2008 documented in this encounter Plan of Treatment Not on file documented as of this encounter Visit Diagnoses Not on filedocumented in this encounter Care Teams Taxation Economist Relationship Specialty [place] [address] [phone] PCP - General 03/17/08 documented as of this encounter
--- OUTSIDE RECORDS SUMMARY | 2025-01-26 08:16 | XMS_ITS | Referral Summary ---
Author Organization [facility] Address [address] [place] [address] Care Team Providers Care Online Journalist Name Role Phone Unavailable Primary Care Provider Unavailabl e Source Comments [facility],non-owned Affiliates and Associated Physician Practices is amultiple site organization consisting of ambulatory clinics and hospital sitesin [place], [place], [place] and [place]. This disclosure is being madepursuant to the Care Everywhere program and may not contain all information available regarding this patient. Last updated 18.[facility] Active Problems Problem Noted Date Diagnosed Date [...] Orientation Not on file Plan of Treatment Not on file
--- OUTSIDE RECORDS SUMMARY | 2025-01-26 08:16 | XMS_ITS | Encounter Summary ---
Author Organization [facility] Address [address] [place] [address] Care Team Providers Care Director Of Contracts Name Role Phone Trevor Womack MD Primary Care Provider +- [phone] Encounter Details Date Type Department Care Team (Late st Contact Info) Description 11/29/2007 Outpatient Historical [facility] Internal Medicine [address] [address] [place] [id number] [address] Social History Tobacco Use Types Packs/Day Years Used Date Smoking Tobacco: Never Assessed Sex and Gender Information Value Date Recorded Sex Assigned at Not on file Legal Sex Male 2:59 AM LOGISTICS COORDINATOR Gender Identity Not on file Sexual Orientation Not on file documented as of this encounter Last Filed Vital Signs Vital Sign Reading Time Taken Comments Blood Pressure 140/80 11/29/2007 9:00 AM LOGISTICS COORDINATOR Pulse - - Temperature - - Respiratory Rate - - Oxygen Saturation - - Inhaled Oxygen Concentration - - Weight 81.2 kg (179 lb) 11/29/2007 9:00 AM LOGISTICS COORDINATOR Height - - Body Mass Index - - documented in this encounter Plan of Treatment Not on file documented as of this encounter Visit Diagnoses Not on filedocumented in this encounter Care Teams Director Of Contracts Relationship Specialty Start Date End Date Trevor Wom[place] [id number] [place] [address] [address] [place] [address] PCP - General 03/17/08 documented as of this encounter
[2025-01-26 08:43] LABS: LDL Cholesterol Direct 77 mg/dL
[2025-01-26 09:07] LABS: Alanine Aminotransferase 48 U/L (6-50); Albumin Level 4.2 g/dL (3.5-5.1); Alkaline Phosphatase 119 U/L (38-126); Anion Gap 9 mmol/L (4-12); Aspartate Amino Transferase 33 U/L (17-59); Bilirubin,Total 0.5 mg/dL (0.2-1.3); Blood Urea Nitrogen 17 mg/dL (9-20); Calcium 9.3 mg/dL (8.4-10.2); Carbon Dioxide 25 mmol/L (22-30); Chloride 103 mmol/L (98-107); Cholesterol 202 mg/dL (0-200); Estimated Glomerular Filt Rate > 60; Glucose 172 mg/dL (65-110); Potassium 4.1 mmol/L (3.4-5.0); Sodium 137 mmol/L (137-145)
[2025-01-26 09:25] LABS: Hemoglobin A1C 8.6 % (<5.7)
[2025-01-26 09:46] LABS: Vitamin D 25 Hydroxy 19.8 ng/mL
[2025-01-26 10:48] LABS: Triglycerides 625 mg/dL (<150)
[2025-01-26 11:16] LABS: Creatinine Urine 167.8 mg/dL
[2025-01-26 11:18] LABS: MALB Creatinine Ratio 21.5 mg/g (0-30)
== END 2025-01-26 08:04 | disposition home or self-care (01) ==
LOC: ANHLAB 08:05
PROVIDERS: PCP Emergency Medicine; Visit Provider Emergency Medicine
DX: E78.5 Hyperlipidemia, unspecified (principal); E11.9 Type 2 diabetes mellitus without complications; E55.9 Vitamin D deficiency, unspecified
CPT/HCPCS: 36415; 80053; 80061; 82043; 82306; 83036